=== PATIENT | female | born 1930 | race Caucasian/White ===

== ENCOUNTER → 2016-12-20 | Outpatient (CLI) | payer BC ==
[~2016-12-20] MED LIST: AMOX500C3 PO; ASPI-461 PO; BROM0.07 OPL; CETI10TA84 PO; CHOL20005 PO; CRDCD120 PO; GATI0.5S OPL; LEVO75TA5 PO; LPT40 PO; MAGN1CAP2 PO; METO1TAB69 PO; PRD20 PO; PRED1SUS3 OPL; PRLSR20 PO; ZNT150 PO
[2016-12-20 13:09] LABS: BASO % 0.3 %; BASO ABS # 0.02 K/uL (0-0.2); COMPLETE YES; EOS % 6.8 %; HEMATOCRIT 38.5 % (37-47); IG% 0.3 %; LYMPH % 32.5 %; LYMPH ABS # 2.59 K/uL (1.2-3.4); MEAN CELL VOLUME 85.4 fL (80-100); MEAN CORPUSCULAR HEMOGLOBIN 28.8 pg (25-34); MEAN CORPUSCULAR HGB CONC 33.8 g/dl (32-36); MEAN PLATELET VOLUME 11.5 fL (7.4-10.4); MONO % 12.9 %; NEUT % 47.2 %; PLATELET COUNT 224 K/uL (130-400); RED BLOOD COUNT 4.51 M/uL (4.2-5.4); WHITE BLOOD COUNT 7.97 K/uL (4.8-10.8)
[2016-12-20 13:43] LABS: ALT/SGPT 21 U/L (12-78); BLOOD UREA NITROGEN 18 mg/dl (7-18); BUN/CREATININE RATIO 19.1 (10-20); CALCIUM 9.2 mg/dl (8.5-10.1); CARBON DIOXIDE 29 mmol/L (21-32); CHLORIDE 104 mmol/L (98-107); CREATININE 0.96 mg/dl (0.60-1.20); GLUCOSE 69 mg/dl (70-99); POTASSIUM 4.1 mmol/L (3.5-5.1); SODIUM 139 mmol/L (136-145)
[2016-12-20 13:54] LABS: ALB/GLOB RATIO 0.9 (0.9-2); ALKALINE PHOSPHATASE 103 U/L (45-117); AST/SGOT 22 U/L (15-37); PHOSPHORUS 2.8 mg/dl (2.5-4.9); THYROID STIMULATING HORMONE 0.685 uIu/ml (0.300-4.500)
[2016-12-20 13:55] LABS: RATIO 37.5 mcg/mg (0-30.0)
== END | disposition home or self-care (01) ==
LOC: C.LAB 12:09
PROVIDERS: ATTEND Internal Medicine
DX: N18.3 Chronic kidney disease, stage 3 (moderate) (principal); E03.9 Hypothyroidism, unspecified; M81.0 Age-related osteoporosis without current pathological fracture

== ENCOUNTER → 2018-02-24 | Outpatient (CLI) | payer BC ==
[~2018-02-24] MED LIST changes: -CRDCD120 PO; +DILT-202 PO; +METO100T44 PO; -METO1TAB69 PO
[2018-02-24 10:50] LABS: BLOOD UREA NITROGEN 17 mg/dl (7-18); CREATININE 1.18 mg/dl (0.60-1.20)
== END | disposition home or self-care (01) ==
LOC: C.LAB1850 09:26
PROVIDERS: ATTEND Psychiatry & Neurology Neurology
DX: G40.209 Localization-related (focal) (partial) symptomatic epilepsy and epileptic syndromes with complex partial seizures, not intractable, without status epilepticus (principal)

== ENCOUNTER → 2018-02-28 | Outpatient (CLI) | payer BC ==
[~2018-02-28] MED LIST changes: +GADAVIST IV PRN
--- NOTE | 2018-02-28 09:00 | DIAGNOSTIC IMAGING REPORT ---
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 COMPARISON STUDY: Head CT 11/19/2015. FINDINGS: There is no mass, hematoma, midline shift, or acute infarct. The paranasal sinuses are clear. The mastoid air cells are clear. The ventricles and sulci demonstrate mild age-related involutional changes. Scattered foci of T2 hyperintensity seen within the periventricular and subcortical white matter are nonspecific but suggestive of moderate microvascular ischemic changes. The major vascular flow voids at the skull base are well-maintained. The medial temporal lobes are symmetric. Linear focus of enhancement within the right parietal lobe consistent with a development of venous anomaly. This is consistent with a normal variant. Otherwise, no abnormal enhancement. IMPRESSION: No acute intracranial abnormality. Scattered foci of T2 hyperintensity seen within the periventricular and subcortical white matter are nonspecific but favor microvascular ischemic change. Electronically signed by: Erich Canales M.D. 02/28/2018 8:59 AM Dictated Date/Time: 02/28/2018 8:20 AM
== END | disposition home or self-care (01) ==
LOC: C.MRIBC 06:44
PROVIDERS: ATTEND Psychiatry & Neurology Neurology
DX: G40.209 Localization-related (focal) (partial) symptomatic epilepsy and epileptic syndromes with complex partial seizures, not intractable, without status epilepticus (principal)

== ENCOUNTER 2020-01-05 19:47 | Inpatient (IN) ==
--- NOTE | 2020-01-05 20:05 | Emergency Department Note ---
ED Provider Note NAME: JOSE CANTOR AGE: 89 SEX: F ARRIVES VIA: Walk-In INFORMANT: [Patient] ED PROVIDER(S): [Prosper Pritchard MD] CHIEF COMPLAINT: chest pain IMPRESSION: Acute respiratory failure with hypoxia, Flash pulmonary edema, Hypertensive emergency, CHF (congestive heart failure), Aortic stenosis MEDICAL DECISION MAKING: The patient is a pleasant 89 y/o woman with a pmhx of HTN, HLD, CKD, DVT, s/p AVR with aortic stenosis who presents to the emergency department with CP, shoulder pain, shortness of breath, with associated tingling of BUE which began this evening around 7pm tonight shortly prior to arrival when walking with her after eating dinner. Patient reports chronic SMITH but reports she does not typically have the associated CP and shoulder pain and that her SOB this time was much worse. She does report it was steadily improving without intervention upon arriving to the ED tonight. On arrival the patient is fatigued appearing but in NAD, AF, BP 150s/80s, O2 saturation 89% on RA, and otherwise VS S. On exam the patient appears clinically dry. Lungs are with scant intermittent wheeze but otherwise clear. 3/6 systolic murmur. EKG unremarkable without evidence of acute ischemia. CXR with mild prominence of pulmonary vasculature but no overt failure. WBC, H/H, platelets wnl. Chemistry without acidosis. BUN 26 with BUN/Cr > 20 c/w patient's clinically dry appearance. LFTs and electrolytes unremarkable. Troponin 0.024, wnl. BNP 8K without prior values for comparison. Flu negative. Given patient's constellation of sx CTA of the chest was performed and was negative for dissection, PE or focal infiltrates. Note is made of mild congestive change with "trace amount pleural fluid both lung base s". Upon return for CT patient expresses significant worsening of symptoms, with increased WOB and accessory muscle use with BP increased to 170s/110s with development of rales and rhonchi. Sx most c/w flash pulmonary edema given related to lying supine for CT. Patient was ordered for NTG for afterload reduction and Bipap, which the patient tolerated well after 0.25mg dose of ativan for anxiolysis. Subsequently, patient's WOB rapidly improved and was able to rest comfortably. Given patient's tenuous respiratory status with development of respiratory failure admission was pursued. Patient and family were agreeable. Patient likely has narrow window for Euvolemia in the setting of her aortic st enosis. May require combination of hydration and diuresis. Case was discussed with Dr. Mathis, [facility] hospitalist, who will evaluate the patient for admission. Triage Nursing notes reviewed and agree them. [Prior medical records reviewed] [] Differential diagnosis: Cardiac ischemia, aortic dissection, pulmonary embolism, pneumothorax, pneumo nicholas, pericarditis, myocarditis, esophageal rupture, GERD, cholecystitis, pancreatitis, musculoskeletal, as well as other pathologies. ER treatment provided: [See below] Diagnostics interpreted by me: ECG: NSR, 87 bpm, ST and TWA laterally, no ST elevation, no ectopy, qtc 462, qrs 104. Cardiac Monitoring: NSR, 87 bpm, no ectopy. Laboratory studies: [See below] [] Imaging studies: [See below] [] Consultation(s): Dr. Mathis [facility] hospitalist, who will evaluate the patient for admission. HPI: The patient is a pleasant 89 y/o woman with a pmhx of HTN, HLD, CKD, DVT, s/p AVR with aortic stenosis who presents to the emergency department with CP, shoulder pain, shortness of breath, with associated tingling of BUE which began this evening around 7pm tonight shortly prior to arrival when walking with her after eating dinner. Patient reports chronic SMITH but reports she does not typically have the associated CP and shoulder pain and that her SOB this time was much worse. She does report it was steadily improving without intervention upon arriving to the ED tonight. The patient reports onset as abrupt. Reports exertion as provoking factor. Describes symptoms as heaviness in chest and shoulders. Reports radiation arms with tingling. Reports severity as mild to moderate. Timing of symptoms are constant but improving. Has tried medications to help with symptoms. Denies recent travel. Denies fevers, cough, congestion, nausea, vomiting, diarrhea, JOINER, syncope/near syncope. ROS: See above HPI for pertinent positives & negatives. A total of [10] systems reviewed and were otherwise negative. PAST MEDICAL HISTORY:[See Below] PAST SURGICAL HISTORY:[See Below] FAMILY HISTORY:[See Below] SOCIAL HISTORY:[See Below] HOME MEDICATIONS:[See Below] ALLERGIES:[See Below] VITALS:[See Below] PHYSICAL EXAMINATION: GENERAL: Awake, alert, fatigued-appearing, in no distress HENT: Normocephalic, atraumatic. Oropharynx with dry mucous membranes and otherwise unremarkable. EYES: Normal conjunctiva. Sclera non-icteric. NECK: Supple. No nuchal rigidity. FROM. No JVD. RESPIRATORY: Scant intermittent wheeze and otherwise clear to auscultation. CARDIAC: Regular rate, normal rhythm. Extremities warm and well perfused. Pulses equal. 3/6 systolic murmur that radiates to bilateral carotids. ABDOMEN: Soft, non-distended. No tenderness to palpation. No rebound or guarding. No masses. RECTAL: Deferred. MUSCULOSKELETAL: Chest examination reveals no tenderness. The back is symmetrical on inspection without obvious abnormality. There is no CVA tenderness to palpation. No joint edema. LOWER EXTREMITIES: Calves are equal size bilaterally and non-tender. No edema. No discoloration. NEURO: Normal sensorium. No sensory or motor deficits noted. SKIN: No rash or jaundice noted. ED COURSE: Procedures: [none] [Critical Care:] I have personally spent greater than 75 minutes of critical care time in the direct management of this patient. This includes bedside care, interpretation o f diagnostic studies, and testing, discussion with consultants, patient, and family members, and other required patient management activities. This 75 minutes is in excess of all separately billable procedures. Impression & Plan Acute respiratory failure with hypoxia, Flash pulmonary edema, Hypertensive emergency, CHF (congestive heart failure), Aortic stenosis Past Med/Surg History Medical History Carotid artery disease (Chronic) "bilateral bruits, < 50% stenosis bilaterally 2010" CKD (chronic kidney disease) stage 3, GFR 30-59 ml/min (Chronic) Diverticular disease of colon (Chronic) Dyslipidemia (Chronic) History of heparin-induced thrombocytopenia (Chronic) [place] [place]" Hypertension (Chronic) Hypothyroidism (Chronic) Osteoporosis (Chronic) Patella fracture (Resolved) "right patella 04/26/14" Supraventricular tachycardia (Chronic) Surgical History Status post aortic valve replacement with bioprosthetic valve (Chronic) "severe /AI; Dr. Clark [facility] [place] 10/10/09; 21 mm Didi-Greene" Social History Preferred Language: Faroese Communication Ability: Effective Inspector Subassembly Required: No Beliefs That Will Affect Care: None Current Living Situation: Spouse Other Information That Helps Us Care for You: No Feels Safe at Home: Yes Safety Concerns: Feels Safe At This Time Smoking Status: Unknown if ever smoked Hx Alcohol Use: No Hx Substance Use: No Results & Data Vital Signs Vital Signs - 24 hr 01/05/20 19:48 01/05/20 19:55 01/05/20 21:45 Temperature 36.3 C L Temperature Source Oral Pulse Rate 91 H Pulse Rate [Finger] Pulse Rate from SpO2 Sensor Pulse Rhythm Regular Pulse Strength Normal Respiratory Rate 20 Respiratory Effort / Characteristics Non-Labored Spontaneous Respiratory Depth Normal Respiratory Pattern Regular Blood Pressure 154/80 H Blood Pressure [Left Arm] Blood Pressure Mean 104 Blood Pressure Mean [Left Arm] Blood Pressure Position Sitting Pulse Oximetry 96 96 89 L Oxygen Delivery Method Room Air Room Air Room Air Oxygen Flow Rate Fraction of Inspired Oxygen Sepsis Recent Fever Within 48 Hours No Sepsis Action Taken by Nursing No Action Required 01/05/20 22:05 01/05/20 22:09 01/05/20 22:16 Temperature Temperature Source Pulse Rate 87 87 Pulse Rate [Finger] 90 Pulse Rate from SpO2 Sensor Pulse Rhythm Pulse Strength Respiratory Rate 23 35 H 23 Respiratory Effort / Characteristics Spontaneous Labored Spontaneous Labored Respiratory Depth Normal Normal Respiratory Pattern Regular Blood Pressure Blood Pressure [Left Arm] 178/104 H Blood Pressure Mean Blood Pressure Mean [Left Arm] 128 Blood Pressure Position Pulse Oximetry 97 97 97 Oxygen Delivery Method Nasal Cannula Nasal Cannula Oxygen Flow Rate 3 4 Fraction of Inspired Oxygen 30 30 Sepsis Recent Fever Within 48 Hours Sepsis Action Taken by Nursing 01/05/20 22:45 01/05/20 22:50 Temperature Temperature Source Pulse Rate 74 73 Pulse Rate [Finger] Pulse Rate from SpO2 Sensor 74 73 Pulse Rhythm Pulse Strength Respiratory Rate 20 24 Respiratory Effort / Characteristics Respiratory Depth Respiratory Pattern Blood Pressure 116/88 137/89 Blood Pressure [Left Arm] Blood Pressure Mean 90 92 Blood Pressure Mean [Left Arm] Blood Pressure Position Pulse Oximetry 99 99 Oxygen Delivery Method Oxygen Flow Rate Fraction of Inspired Oxygen Sepsis Recent Fever Within 48 Hours Sepsis Action Taken by Nursing Laboratory Data Attestation: I reviewed the patient's lab results. Result diagrams: 01/05/20 20:00 01/05/20 20:00 Lab Results 01/05/20 01/05/20 01/05/20 Range/Units 20:00 20:00 20:00 WBC 7.04 (4.8-10.8) K/uL RBC 4.38 (4.2-5.4) M/uL Hgb 12.6 (12.0-16.0) g/dL Hct 38.5 (37-47) % MCV 87.9 (80-100) fL MCH 28.8 (25-34) pg MCHC 32.7 (32-36) g/dL RDW Std Deviation 46.3 (36.4-46.3) fL RDW Coeff of Cheryl 14.4 (11.5-14.5) % Plt Count 222 (130-400) K/uL MPV 11.1 H (7.4-10.4) fL Immature Gran % (Auto) 0.3 % Neut % (Auto) 47.7 % Lymph % (Auto) 30.3 % Letcher % (Auto) 11.9 % Eos % (Auto) 9.2 % Baso % (Auto) 0.6 % Immature Gran # (Auto) 0.02 (0.00-0.02) K/uL Neut # (Auto) 3.36 (1.4-6.5) K/uL Lymph # (Auto) 2.13 (1.2-3.4) K/uL Letcher # (Auto) 0.84 H (0.11-0.59) K/uL Eos # (Auto) 0.65 H (0-0.5) K/uL Baso # (Auto) 0.04 (0-0.2) K/uL PT 10.6 (9.0-12.0) Seconds INR 1.0 (0.9-1.1) APTT 26.8 (21.0-31.0) Seconds PTT Ratio 1.0 Sodium 140 (136-145) mmol/L Potassium 3.8 (3.5-5.1) mmol/L Chloride 109 H (98-107) mmol/L Carbon Dioxide 25 (21-32) mmol/L Anion Gap 7.0 (3-11) BUN 26 H (7-18) mg/dl Creatinine 1.14 (0.6-1.2) mg/dl Est Cr Clr Drug Dosing Not Reportable Est GFR ( Amer) 50.1 Est GFR (Non-Af Amer) 43.2 BUN/Creatinine Ratio 22.4 H (10-20) Glucose 94 (70-99) mg/dl Calcium 9.2 (8.5-10.1) mg/dl Phosphorus 3.2 (2.5-4.9) mg/dl Magnesium 2.2 (1.8-2.4) mg/dl Total Bilirubin 0.4 (0.2-1) mg/dl AST 32 (15-37) U/L ALT 19 (12-78) U/L Alkaline Phosphatase 81 (45-117) U/L Troponin I 0.024 (0-0.045) ng/ml NT-Pro-B Natriuret Pep 8559 H (0-1800) pg/ml Total Protein 7.6 (6.4-8.2) gm/dl Albumin 4.1 (3.4-5.0) gm/dl Globulin 3.5 (2.5-4.0) gm/dl Albumin/Globulin Ratio 1.2 (0.9-2) Lipase 134 (73-393) U/L TSH 0.258 L (0.300-4.500) uIu/ml Free T4 1.37 (0.8-1.6) ng/dl Specimen Hemolysis Administered Medications Lamotrigine (Lamictal) 50 mg PO BID AFTAB Stop: 02/04/20 23:39 Last Admin: 01/06/20 00:38 Dose: 50 mg Documented by: [id number] Discontinued Medications Furosemide (Lasix) 40 mg IV NOW STA Stop: 01/05/20 22:11 Last Admin: 01/05/20 22:31 Dose: 40 mg Documented by: [id number] Sodium Chloride (Nss) 500 mls @ 999 mls/hr IV .Q31M ONE Stop: 01/05/20 20:46 Last Infusion: 01/05/20 21:18 Dose: 0 mls/hr Documented by: [id number] Admin: 01/05/20 20:32 Dose: 999 mls/hr Documented by: [id number] Acetaminophen (Ofirmev) 1,000 mg in 100 mls @ 400 mls/hr IV NOW STA Stop: 01/05/20 20:30 Last Infusion: 01/05/20 20:47 Dose: 0 mls/hr Documented by: [id number] Admin: 01/05/20 20:32 Dose: 400 mls/hr Documented by: [id number] Famotidine (Pepcid 20mg Iv Push) 20 mg in 5 mls @ 2.5 mls/min IV NOW STA Stop: 01/05/20 20:17 Last Admin: 01/05/20 20:32 Dose: 2.5 mls/min Documented by: [id number] Lorazepam (Ativan) 0.25 mg in 0.5 mls @ 0.5 mls/min IV NOW STA Stop: 01/05/20 22:04 Last Admin: 01/05/20 22:06 Dose: 0.5 mls/min Documented by: [id number] Ioversol (Optiray 320 125ml) 111 ml IV ONCE PRN PRN Reason: Interaction Checking Stop: 01/09/20 20:58 Last Admin: 01/05/20 21:00 Dose: 111 ml Documented by: [id number] Ipratropium [place] (Atrovent 0.02% 0.5mg/2.5ml) 0.5 mg INH ONE STA Stop: 01/05/20 22:37 Last Admin: 01/05/20 23:09 Dose: 0.5 mg Documented by: [id number] Levalbuterol HCl (Xopenex 1.25mg/0.5ml Neb) 1.25 mg INH ONE STA Stop: 01/05/20 22:37 Last Admin: 01/05/20 23:09 Dose: 1.25 mg Documented by: [id number] Nitroglycerin (Nitrostat) 0.4 mg SL NOW STA Stop: 01/05/20 21:44 Last Admin: 01/05/20 22:08 Dose: 0.4 mg Documented by: [id number] Potassium Chloride (Klor-Con M20) 40 meq PO NOW STA Stop: 01/05/20 23:41 Last Admin: 01/06/20 00:38 Dose: 40 meq Documented by: [id number] Imaging Data Attestation: I personally reviewed and interpreted this imaging study as follows: Radiologist's Impression: XR chest 1V portable CLINICAL HISTORY: Chest Pain dyspnea COMPARISON STUDY: 11/18/2015 FINDINGS: Mild cardiac megaly. Prior median sternotomy. Increased prominence of pulmonary vasculature. Diaphragms are smooth. There is slight blunting right lateral costophrenic angle. IMPRESSION: Probable developing congestive heart failure ACT 112: Negative or not required by law. ------- CT angio chest PE protocol CT DOSE: 252.09 mGy.cm HISTORY: Dyspnea PE TECHNIQUE: Multiaxial CT images of the chest were performed following the intravenous administration of contrast to evaluate the pulmonary arteries. Maximal intensity projection images were also obtained. A dose lowering technique was utilized adhering to the principles of ALARA. COMPARISON STUDY: None. FINDINGS: Atherosclerotic change thoracic aorta. Fixed hiatal hernia. Bony vasculature enhances appropriately. No significant filling defects. Baseline emphysematous change of the lungs. Scattered areas of atelectatic change. Cardiac size is increased. Trace amount pleural fluid both lung bases. IMPRESSION: 1. No evidence for pulmonary embolus. 2. Moderate emphysematous change. 3. Fixed hiatal hernia. 4. Findings of mild congestive failure with small bilateral pleural effusions. ACT 112: Negative or not required by law. Blood Pressure Blood Pressure Findings: Elevated blood pressure Blood Pressure Disposition: further management by hospitalist Discharge Plan Visit Data *Final* Discharge Date/Time: 01/05/20 23:23 Chief Complaint: Chest Pain Stated Complaint: NUMBNESS IN ARM, CHEST PAIN ED Provider: Prosper Pritchard Discharge Problem: Acute respiratory failure with hypoxia, Flash pulmonary edema, Hypertensive emergency, CHF (congestive heart failure), Aortic stenosis Patient Disposition: Admitted As Inpatient Discharge Instructions Interventions: ED Discharge Assessment Last Done: 01/05/20 23:23 Meds Home Medications and Allergies Home Medications Medication Instructions Recorded Confirmed Type amoxicillin 2,000 mg PO UD 01/12/19 01/05/20 History aspirin 81 mg PO HS 01/12/19 01/05/20 History atorvastatin 40 mg PO QAM 01/12/19 01/05/20 History cetirizine-pseudoephedrine 1 tab PO PM 01/12/19 01/05/20 History [Zyrtec-D] cholecalciferol (vitamin D3) 2,000 unit PO QAM 01/12/19 01/05/20 History [Vitamin D3] diltiazem HCl 120 mg PO QAM 01/12/19 01/05/20 History magnesium oxide 500 mg PO QAM 01/12/19 01/05/20 History metoprolol succinate 100 mg PO 01/12/19 01/05/20 History polyvinyl alcohol-povidon(PF) 1 drp OPB DAILY 01/12/19 01/05/20 History [Refresh Classic (PF)] ranitidine HCl 150 mg PO BID 01/12/19 01/05/20 History acetaminophen [Tylenol Extra 500 mg PO QID PRN 07/03/19 01/05/20 History Strength] furosemide [Lasix] 20 mg PO DAILY 01/05/20 01/05/20 History isosorbide mononitrate 30 mg PO DAILY 01/05/20 01/05/20 History lamotrigine [Lamictal] 50 mg PO BID 01/05/20 01/05/20 History levothyroxine 88 mcg PO DAILY 01/05/20 01/05/20 History Allergies Allergy/AdvReac Type Severity Reaction Status Date / Time heparin Allergy Severe + Verified 01/05/20 20:37 SEROTONIN RELEASE ASSAY 09/2009 [facility] losartan Allergy Severe angioedema Verified 01/05/20 20:37 Cipro Allergy Intermediate ? Verified 11/18/15 11:01 ciprofloxacin Allergy Intermediate ? Verified 01/05/20 20:37 fexofenadine Allergy Intermediate ? Verified 01/05/20 20:37 risedronate sodium Allergy Intermediate ? Verified 01/05/20 20:37 alendronate sodium Allergy Unknown UNKNOWN Verified 01/05/20 20:37 Bactrim Allergy Unknown ? Verified 11/18/15 11:01 lactose Allergy Unknown . Unverified 01/05/20 20:37 morphine Allergy Unknown ? Verified 07/03/19 10:39 raloxifene Allergy Unknown UNKNOWN Verified 07/03/19 10:39 sulfamethoxazole Allergy Unknown ? Verified 07/03/19 10:39 trimethoprim Allergy Unknown ? Verified 07/03/19 10:39 oxycodone AdvReac Intermediate NAUSEA Verified 07/03/19 10:39 albuterol AdvReac Mild tachycardia Verified 01/05/20 22:29
--- NOTE | 2020-01-05 20:11 | XRay Report ---
XR chest 1V portable CLINICAL HISTORY: Chest Pain dyspnea COMPARISON STUDY: 11/18/2015 FINDINGS: Mild cardiac megaly. Prior median sternotomy. Increased prominence of pulmonary vasculature . Diaphragms are smooth. There is slight blunting right lateral costophrenic angle. IMPRESSION: Probable developing congestive heart failure ACT 112: Negative or not required by law. The above report was generated using voice recognition software. It may contain grammatical, syntax or spelling errors. Electronically signed by: Sergio Gutierrez M.D. 01/05/2020 8:10 PM
[2020-01-05] MEDS ORDERED: FAMOTIDINE 20MG IV PUSH 20 MG/5 ML SYR IV STA (20:16)
[2020-01-05] MEDS ORDERED: SODIUM CHLORIDE 0.9% 500 ML IV ONE (20:16)
[2020-01-05] MEDS ORDERED: ACETAMINOPHEN 1,000 MG/100 ML VIAL IV STA (20:16)
[2020-01-05 20:18] LABS: Basophils # (auto) 0.04 K/uL (0-0.2); Basophils % (auto) 0.6 %; Eosinophils # (auto) 0.65 K/uL (0-0.5); Eosinophils % (auto) 9.2 %; Hematocrit (blood only) 38.5 % (37-47); Hemoglobin 12.6 g/dL (12.0-16.0); Immature Granulocytes # (auto) 0.02 K/uL (0.00-0.02); Immature Granulocytes % (auto) 0.3 %; Lymphocytes # (auto) 2.13 K/uL (1.2-3.4); Lymphocytes % (auto) 30.3 %; Mean Corpuscular Hemoglobin 28.8 pg (25-34); Mean Corpuscular Hgb Conc 32.7 g/dL (32-36); Mean Corpuscular Volume 87.9 fL (80-100); Mean Platelet Volume 11.1 fL (7.4-10.4); Monocytes # (auto) 0.84 K/uL (0.11-0.59); Monocytes % (auto) 11.9 %; Neutrophils # (auto) 3.36 K/uL (1.4-6.5); Neutrophils % (auto) 47.7 %; Platelet Count 222 K/uL (130-400); RDW Coefficient of Variation 14.4 % (11.5-14.5); RDW Standard Deviation 46.3 fL (36.4-46.3); Red Blood Count 4.38 M/uL (4.2-5.4); White Blood Count 7.04 K/uL (4.8-10.8)
[2020-01-05 20:37] LABS: Partial Thromboplastin Time 26.8 Seconds (21.0-31.0); Prothrombin Time 10.6 Seconds (9.0-12.0)
[2020-01-05 20:44] LABS: Alanine Aminotransferase 19 U/L (12-78); Albumin Level 4.1 gm/dl (3.4-5.0); Aspartate Aminotransferase 32 U/L (15-37); BUN Creatinine Ratio 22.4 (10-20); Blood Urea Nitrogen 26 mg/dl (7-18); Calcium 9.2 mg/dl (8.5-10.1); Carbon Dioxide 25 mmol/L (21-32); Chloride 109 mmol/L (98-107); Est GFR (African American) 50.1; Est GFR (Non-African American) 43.2; Glucose 94 mg/dl (70-99); Lipase 134 U/L (73-393); Magnesium 2.2 mg/dl (1.8-2.4); Potassium 3.8 mmol/L (3.5-5.1); Sodium 140 mmol/L (136-145)
[2020-01-05 20:50] LABS: Albumin Globulin Ratio 1.2 (0.9-2); Alkaline Phosphatase 81 U/L (45-117); Bilirubin,Total 0.4 mg/dl (0.2-1); Globulin 3.5 gm/dl (2.5-4.0); Phosphorus 3.2 mg/dl (2.5-4.9); Thyroid Stimulating Hormone 0.258 uIu/ml (0.300-4.500); Total Protein 7.6 gm/dl (6.4-8.2); Troponin I 0.024 ng/ml (0-0.045)
[2020-01-05] MEDS ORDERED: OPTIRAY 320 125ml IV PRN (20:59)
[2020-01-05 21:05] LABS: T4 Free Thyroxine 1.37 ng/dl (0.8-1.6)
--- NOTE | 2020-01-05 21:05 | CT Scan Report ---
CT angio chest PE protocol CT DOSE: 252.09 mGy.cm HISTORY: Dyspnea PE TECHNIQUE: Multiaxial CT images of the chest were performed following the intravenous administration of contrast to evaluate the pulmonary arteries. Maximal intensity projection images were also obtaine d. A dose lowering technique was utilized adhering to the principles of ALARA. COMPARISON STUDY: None. FINDINGS: Atherosclerotic change thoracic aorta. Fixed hiatal hernia. Bony vasculature enhances appropriately. No significant filling defects. Baseline emphysematous change of the lungs. Scattered areas of atelectatic change. Cardiac size is in creased. Trace amount pleural fluid both lung bases. IMPRESSION: 1. No evidence for pulmonary embolus. 2. Moderate emphysematous change. 3. Fixed hiatal hernia. 4. Findings of mild congestive failure with small bilateral pleural effusions. ACT 112: Negative or not required by law. The above report was generated using voice recognition software. It may contain grammatical, syntax or spelling errors. Electronically signed by: Sergio Gutierrez M.D. 01/05/2020 9:04 PM
[2020-01-05] MEDS ORDERED: NITROGLYCERIN SL 0.4 MG/TAB TAB SL STA (21:43)
[2020-01-05] MEDS ORDERED: LORazepam 0.25 MG/0.5 ML VIAL IV STA (22:03)
[2020-01-05] MEDS ORDERED: FUROSEMIDE 40 MG/4 ML VIAL IV STA (22:10)
[2020-01-05 22:18] LABS: NT Pro B Type Natriuretic Pept 8559 pg/ml (0-1800)
[2020-01-05] MEDS ORDERED: XOPENEX/ATROVENT 1.25mg/0.5MG NEB COMBO NEB STA (22:29)
[2020-01-05] MEDS ORDERED: LEVALBUTEROL 1.25MG/0.5ML NEB INH STA (22:36)
[2020-01-05] MEDS ORDERED: IPRATROPIUM BROMIDE NEB SOLN 0.02% 2.5 ML VIAL INH STA (22:36)
--- NOTE | 2020-01-05 22:53 | History & Physical Report ---
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 PCU BiPAP Baseline ABG IV diuretic Rx now Strict I/Os, daily weights, CHF education, fluid restriction for now Cardiology consult RE decompensated heart failure DVT prophylaxis. 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 Patient's requesting updates from providers. Mr. Kalin Pérez, contact numbers [phone], [phone]. Text document was generated using [employer] voice recognition software. It may contain grammatical or spelling errors. Kindly contact undersigned for clarification of any documentation item in question. History of Present Illness Chief Complaint: Shortness of breath Primary Care Provider: Edd Guardado MD History obtained from patient, family, and records. Medical history significant for chronic diastolic heart failure (EF 52%, TTE 2019), CAD/PVD per records, PSVT as per records, aortic stenosis status post bioprosthetic AVR, bioprosthetic AV stenosis, severe mitral/regurgitation, pulmonary hypertension as per records, hypertension, seizure disorder, hypothyroidism, history bilateral PE/DVT, hx heparin-induced thrombocytopenia, macular degeneration. Recent confinement October 2015 for PSVT, tongue edema secondary to Losartan. Patient underwent bioprosthetic AVR for aortic stenosis last September 2019. Patient noted gradually worsening shortness of breath on exertion over the last 6 months as per family. Patient evaluated by [facility] cardiology September 2020. Symptoms attributed to valvular heart disease including severe bioprosthetic aortic valve stenosis. Observation/medical management recommended at time of encounter. Consider surgical intervention with declining functional capacity, refractory CHF, or worsening exertional symptoms. Updated outpatient 2D echo results from October 2019 as follows : The LV wall thickness is mildly increased (concentric). The left ventricular wall motion is normal. Calculated LV ejection Fraction = 52% (bi-plane method of discs). There is an aortic valve bioprosthetic present. The prosthetic aortic valve leaflets appear thickened with decreased excursion. Severe aortic valve prosthetic stenosis is present, with peak continues wave Doppler velocity of 5.5 meters/second, mean gradient 76 millimeters Hg, calculated aortic valve area 0.4 cm2 Severe mitral regurgitation is present. Severe tricuspid regurgitation is present. Severe pulmonary hypertension is present. The estimated pulmonary artery systolic pressure is 78mm Hg. Compared to the prior study performed 04/27/2017, the peak CW Doppler velocity across the prosthetic aortic valve was 2.2 meters/second at that time, as compared to 4.1 meters/second on 03/10/2019, and 5.5 meters/second on the current study. There has therefore been an interval progression of the prosthetic aortic valve stenos is. Mild pulmonary hypertension was noted at the time of the 02/28/2019 study, with estimated pulmonary artery systolic pressure in the range of 40-45 millimeters of Hg, as compared to > 70 millimeters Hg on the present study. Worsening exertional dyspnea symptoms on follow-up outpatient Cardiology visit 3 weeks ago. Outpatient diuretic regimen increased. Patient awaiting appointment second opinion from [facility] CT surgery as family was told by [facility] CT surgeons that they would not be comfortable doing procedure at [facility]. This afternoon patient noted dizziness, worsening shortness of breath on exertion with chest heaviness/back pain with dry cough symptoms. No fever, no chills. Denies unusual fluid retention. Compliant with home diuretic regimen. Patient brought to the ER. Progressive respiratory distress noted upon return from CT. BiPAP initiated at the ER. 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 Verified 11/18/15 11:01 ciprofloxacin Allergy Intermediate ? Verified 01/05/20 20:37 fexofenadine Allergy Intermediate ? Verified 01/05/20 20:37 risedronate sodium Allergy Intermediate ? Verified 01/05/20 20:37 alendronate sodium Allergy Unknown UNKNOWN Verified 01/05/20 20:37 Bactrim Allergy Unknown ? Verified 11/18/15 11:01 lactose Allergy Unknown . Unverified 01/05/20 20:37 morphine Allergy Unknown ? Verified 07/03/19 10:39 raloxifene Allergy Unknown UNKNOWN Verified 07/03/19 10:39 sulfamethoxazole Allergy Unknown ? Verified 07/03/19 10:39 trimethoprim Allergy Unknown ? Verified 07/03/19 10:39 oxycodone AdvReac Intermediate NAUSEA Verified 07/03/19 10:39 albuterol AdvReac Mild tachycardia Verified 01/05/20 22:29 Home Medications Home Medications Medication Instructions Recorded Confirmed Type amoxicillin 2,000 mg PO UD 01/12/19 01/05/20 History aspirin 81 mg PO HS 01/12/19 01/05/20 History atorvastatin 40 mg PO QAM 01/12/19 01/05/20 History cetirizine-pseudoephedrine 1 tab PO PM 01/12/19 01/05/20 History [Zyrtec-D] cholecalciferol (vitamin D3) 2,000 unit PO QAM 01/12/19 01/05/20 History [Vitamin D3] diltiazem HCl 120 mg PO QAM 01/12/19 01/05/20 History magnesium oxide 500 mg PO QAM 01/12/19 01/05/20 History metoprolol succinate 100 mg PO HS 01/12/19 01/05/20 History polyvinyl alcohol-povidon(PF) 1 drp OPB DAILY 01/12/19 01/05/20 History [Refresh Classic (PF)] ranitidine HCl 150 mg PO BID 01/12/19 01/05/20 History acetaminophen [Tylenol Extra 500 mg PO QID PRN 07/03/19 01/05/20 History Strength] furosemide [Lasix] 20 mg PO DAILY 01/05/20 01/05/20 History isosorbide mononitrate 30 mg PO DAILY 01/05/20 01/05/20 History lamotrigine [Lamictal] 50 mg PO BID 01/05/20 01/05/20 History levothyroxine 88 mcg PO DAILY 01/05/20 01/05/20 History Past Med/Surg History Social History Preferred Language: Luxembourger Communication Ability: Effective Youth Teacher Required: No Beliefs That Will Affect Care: None Current Living Situation: Spouse Other Information That Helps Us Care for You: No Feels Safe at Home: Yes Safety Concerns: Feels Safe At This Time Smoking Status: Unknown if ever smoked Hx Alcohol Use: No Hx Substance Use: No Review of Systems Review of Systems: As per HPI, all 10 systems reviewed, all other ROS negative Physical Exam Physical Exam: GENERAL: Slightly uncomfortable, minimal respiratory distress SKIN: Normal color, warm HEENT: [place] palpebral conjunctivae, conjunctivitis right (chronic from eye injections as per ), no ptosis, dry buccal mucosa, BiPAP in place NECK : Supple, no tenderness CHEST : Decreased breath sounds, basilar crackles, no tenderness HEART : RRR, systolic murmur ABDOMEN: Some distention, nontender EXTREMITIES : Minimal LE swelling, no LE /tenderness, no other conspicuous deformities noted NEUROLOGIC : Coherent, no facial asymmetry, no other gross focality Results & Data Vital Signs (Past 12 Hours) Vital Signs Temp Pulse Pulse Resp BP BP Pulse Ox 01/05/20 22:16 87 23 97 01/05/20 22:09 90 35 H 178/104 H 97 01/05/20 22:05 87 23 97 01/05/20 21:45 89 L 01/05/20 19:55 96 01/05/20 19:48 36.3 C L 91 H 20 154/80 H 96 Laboratory Results Laboratory Results WBC 7.04 K/uL (4.8-10.8) 01/05/20 20:00 RBC 4.38 M/uL (4.2-5.4) 01/05/20 20:00 Hgb 12.6 g/dL (12.0-16.0) 01/05/20 20:00 Hct 38.5 % (37-47) 01/05/20 20:00 MCV 87.9 fL (80-100) 01/05/20 20:00 MCH 28.8 pg (25-34) 01/05/20 20:00 MCHC 32.7 g/dL (32-36) 01/05/20 20:00 RDW Std Deviation 46.3 fL (36.4-46.3) 01/05/20 20:00 RDW Coeff of Cheryl 14.4 % (11.5-14.5) 01/05/20 20:00 Plt Count 222 K/uL (130-400) 01/05/20 20:00 MPV 11.1 fL (7.4-10.4) H 01/05/20 20:00 Immature Gran % (Auto) 0.3 % 01/05/20 20:00 Neut % (Auto) 47.7 % 01/05/20 20:00 Lymph % (Auto) 30.3 % 01/05/20 20:00 Marshall % (Auto) 11.9 % 01/05/20 20:00 Eos % (Auto) 9.2 % 01/05/20 20:00 Baso % (Auto) 0.6 % 01/05/20 20:00 Immature Gran # (Auto) 0.02 K/uL (0.00-0.02) 01/05/20 20:00 Neut # (Auto) 3.36 K/uL (1.4-6.5) 01/05/20 20:00 Lymph # (Auto) 2.13 K/uL (1.2-3.4) 01/05/20 20:00 Marshall # (Auto) 0.84 K/uL (0.11-0.59) H 01/05/20 20:00 Eos # (Auto) 0.65 K/uL (0-0.5) H 01/05/20 20:00 Baso # (Auto) 0.04 K/uL (0-0.2) 01/05/20 20:00 PT 10.6 Seconds (9.0-12.0) 01/05/20 20:00 INR 1.0 (0.9-1.1) 01/05/20 20:00 APTT 26.8 Seconds (21.0-31.0) 01/05/20 20:00 PTT Ratio 1.0 01/05/20 20:00 Sodium 140 mmol/L (136-145) 01/05/20 20:00 Potassium 3.8 mmol/L (3.5-5.1) 01/05/20 20:00 Chloride 109 mmol/L (98-107) H 01/05/20 20:00 Carbon Dioxide 25 mmol/L (21-32) 01/05/20 20:00 Anion Gap 7.0 (3-11) 01/05/20 20:00 BUN 26 mg/dl (7-18) H 01/05/20 20:00 Creatinine 1.14 mg/dl (0.6-1.2) 01/05/20 20:00 Est Cr Clr Drug Dosing Not Reportable 01/05/20 20: Est GFR ( Amer) 50.1 01/05/20 20: Est GFR (Non-Af Amer) 43.2 01/05/20 20:00 BUN/Creatinine Ratio 22.4 (10-20) H 01/05/20 20:00 Glucose 94 mg/dl (70-99) 01/05/20 20:00 Calcium 9.2 mg/dl (8.5-10.1) 01/05/20 20: Phosphorus 3.2 mg/dl (2.5-4.9) 01/05/20: Magnesium 2.2 mg/dl (1.8-2.4) 01/05/20 20: Total Bilirubin 0.4 mg/dl (0.2-1) 01/05/20 20:00 AST 32 U/L (15-37) 01/05/20 20: ALT 19 U/L (12-78) 01/05/20 20: Alkaline Phosphatase 81 U/L (45-117) 01/05/20 20:00 Troponin I 0.024 ng/ml (0-0.045) 01/05/20: NT-Pro-B Natriuret Pep 8559 pg/ml (0-1800) H 01/05/20 20: Total Protein 7.6 gm/dl (6.4-8.2) 01/05/20 20: Albumin 4.1 gm/dl (3.4-5.0) 01/05/20 20:00 Globulin 3.5 gm/dl (2.5-4.0) 01/05/20 20: Albumin/Globulin Ratio 1.2 (0.9-2) 01/05/20 20: Lipase 134 U/L (73-393) 01/05/20 20: TSH 0.258 uIu/ml (0.300-4.500) L 01/05/20 20: Free T4 1.37 ng/dl (0.8-1.6) 01/05/20 20: Specimen Hemolysis 01/05/20 20:[address] chest: 1. No evidence for pulmonary embolus. 2. Moderate emphysematous change. 3. Fixed hiatal hernia. 4. Findings of mild congestive failure with small bilateral pleural effusions. EKG as per my interpretation : Rate 85, NSR, LAD, LAFB, T wave abnormalities lateral leads
[2020-01-05] MEDS ORDERED: POTASSIUM CHLORIDE 20 MEQ TABCR PO STA (23:40)
[2020-01-05] MEDS ORDERED: IPRATROPIUM BROMIDE NEB SOLN 0.02% 2.5 ML VIAL INH PRN (23:40)
[2020-01-05] MEDS ORDERED: ACETAMINOPHEN 325 MG TAB PO PRN (23:40)
[2020-01-05] MEDS ORDERED: XOPENEX/ATROVENT 1.25mg/0.5MG NEB COMBO NEB PRN (23:40)
[2020-01-05] MEDS ORDERED: LEVALBUTEROL 1.25MG/0.5ML NEB INH PRN (23:40)
[2020-01-05] MEDS ORDERED: NITROGLYCERIN SL 0.4 MG/TAB TAB SL PRN (23:40)
[2020-01-05 23:44] LABS: Allen Test POS (Pos); Base Excess ABG -3.6 mEq/L (-9-1.8); HCO3 ABG 22 mmol/L (19-24); Oxygen Saturation ABG 97.2 % (90-95); PCO2 ABG 39 mmHg (35-46); PO2 ABG 97 mmHg (80-95); pH ABG 7.36 (7.35-7.45)
[2020-01-06] MEDS: lamoTRIgine 25 MG TAB PO SCH ×3 (00:38→21:34)
[2020-01-06 02:40] LABS: Influenza A virus by PCR Neg for Influ A (Neg); Influenza B virus by PCR Neg for Influ B (Neg)
[2020-01-06] MEDS: LEVOTHYROXINE SODIUM 88 MCG TABLET PO SCH (06:10)
[2020-01-06 06:13] LABS: Basophils # (auto) 0.03 K/uL (0-0.2); Basophils % (auto) 0.5 %; Eosinophils # (auto) 0.35 K/uL (0-0.5); Eosinophils % (auto) 6.2 %; Hematocrit (blood only) 36.5 % (37-47); Hemoglobin 11.7 g/dL (12.0-16.0); Immature Granulocytes # (auto) 0.01 K/uL (0.00-0.02); Immature Granulocytes % (auto) 0.2 %; Lymphocytes % (auto) 30.2 %; Mean Corpuscular Hemoglobin 28.2 pg (25-34); Mean Corpuscular Hgb Conc 32.1 g/dL (32-36); Mean Platelet Volume 10.3 fL (7.4-10.4); Monocytes # (auto) 0.69 K/uL (0.11-0.59); Monocytes % (auto) 12.3 %; Neutrophils # (auto) 2.85 K/uL (1.4-6.5); Neutrophils % (auto) 50.6 %; Platelet Count 177 K/uL (130-400); RDW Coefficient of Variation 14.5 % (11.5-14.5); RDW Standard Deviation 46.7 fL (36.4-46.3); Red Blood Count 4.15 M/uL (4.2-5.4); White Blood Count 5.63 K/uL (4.8-10.8)
[2020-01-06 06:53] LABS: BUN Creatinine Ratio 20.7 (10-20); Calcium 9.5 mg/dl (8.5-10.1); Creatinine Clr Calc Pharmacy 27.6 ml/min; Est GFR (African American) 51.2; Est GFR (Non-African American) 44.1; Potassium 4.2 mmol/L (3.5-5.1)
[2020-01-06] MEDS ORDERED: FUROSEMIDE 40 MG/4 ML VIAL IV ONE (08:00)
[2020-01-06 08:41] LABS: Troponin I 0.769 ng/ml (0-0.045)
[2020-01-06] MEDS: FONDAPARINUX 2.5 MG/0.5 ML SYR SQ SCH ×2 (08:50→08:58)
[2020-01-06] MEDS: dilTIAZem HCL 120 MG CAPCR PO SCH (08:51)
[2020-01-06] MEDS: ISOSORBIDE MONO EXTENDED REL 30 MG TABCR PO SCH (08:51)
[2020-01-06] MEDS: ATORVASTATIN 40 MG TAB PO SCH (08:51)
[2020-01-06] MEDS: ARTIFICIAL TEARS OP SCH (08:53)
--- NOTE | 2020-01-06 09:48 | Hospitalist Progress Note ---
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 No evidence for pulmonary embolus. 2. Moderate emphysematous change. 3. Fixed hiatal hernia. 4. Findings of mild congestive failure with small bilateral pleural effusions. -- Lasix 40mg IV x 2 doses given off bipap, nasal cannula usually on Lasix 20mg po daily -- echo pending Cardiology consulted hx CAD/PVD per records -- 0.02 to 0.7 likely demand ischemia -- ekg: non specific ST, t wave changes in lateral leads -- no chest pain on asa, atorvastatin, metoprolol XL hypertension, slightly elevated -- improving seizure disorder, stable on regimen hypothyroidism, TSH noted to be low with normal free T4 secondary to sick euthyroid history bilateral PE/DVT hx heparin-induced thrombocytopenia. PCU DVT prophylaxis. 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) Full code Disposition pending lives with her in an apartment Admission and Anticipated Discharge Date Admission Date: January 05, 2020 Subjective ff up for shortness of breath, CHF exacerbation seen resting in bed, in good spirits, comfortable off oxygen supplement states she feels better this morning denies SOB, chest pain, palpitations, dizziness no cough, fever/chills no other symptoms Review of Systems Review of Systems: All systems reviewed & are unremarkable except as noted in HPI & below Physical Exam Physical Exam: General- oriented x 3, not in distress, speaks in sentences with no effort or accessory muscle use Head- atraumatic Eyes- PERRL, EOMI, anicteric, (+) subconjunctival erythema- right ENT- oropharynx clear Neck- supple, no JVD, no adenopathy, no thyromegaly; carotids +2/2, no bruits appreciated Lungs- clear to auscultation bilaterally, no rales/wheezes Heart- normal rate, regular rhythm; (+) murmur, no gallop, no rub appreciated Abdomen- normal bowel sounds, nondistended, soft, nontender, no masses or hepatosplenomegaly Extremities- no pretibial edema, no calf tenderness; peripheral pulses intact Neuro- alert, oriented x 3; CN 2-12 grossly intact; motor 5/5 bilaterally;sensation 100% on all extremities; no other gross focal neurologic deficits Skin- warm & dry Results & Data ([facility]) Vital Signs (Past 12 Hours) Vital Signs Temp Pulse Pulse Resp BP BP Pulse Ox 01/06/20 07:01 36.5 C 60 20 137/79 100 01/06/20 03:12 36.4 C L 72 16 148/79 H 100 01/06/20 00:57 69 01/06/20 00:19 36.4 C L 73 20 148/80 H 100 01/06/20 00:00 01/05/20 23:21 76 17 98 01/05/20 23:20 68 20 130/86 100 01/05/20 23:15 75 22 157/73 H 100 01/05/20 23:10 79 16 01/05/20 23:05 72 17 140/86 98 01/05/20 23:00 71 16 132/92 99 01/05/20 22:56 72 25 H 132/72 99 01/05/20 22:50 73 24 137/89 99 01/05/20 22:45 74 20 116/88 99 01/05/20 22:16 87 23 97 01/05/20 22:09 90 35 H 178/104 H 97 01/05/20 22:05 87 23 97 Pulse Ox 01/06/20 07:01 01/06/20 03:12 01/06/20 00:57 01/06/20 00:19 01/06/20 00:00 97 01/05/20 23:21 01/05/20 23:20 01/05/20 23:15 01/05/20 23:10 01/05/20 23:05 01/05/20 23:00 01/05/20 22:56 01/05/20 22:50 01/05/20 22:45 01/05/20 22:16 01/05/20 22:09 01/05/20 22:05
--- NOTE | 2020-01-06 12:09 | Cardiology Consultation ---
Date of Consultation January 06, 2020 Assessment & Plan (1) CHF (congestive heart failure): Acute systolic heart failure, likely in the setting of preserved ejection fraction based on echocardiogram performed two months ago with noted history of severe stenosis of a previously placed aortic valve bioprosthesis. Coexistent mitral regurgitation, felt to be at least moderate in severity and perhaps severe, tricuspid regurgitation, pulmonary hypertension. Also has underlying COPD. Compared to the prior study performed 04/27/2017, the peak CW Doppler velocity across the prosthetic aortic valve 2.2 meters/second at that time, as compared to 4.1 meters/second on 03/10/2019, and 5.5 meters/second on in 10/2019. The patient is felt to have complex valvular heart disease, including severe prosthetic aortic valve stenosis and significant mitral regurgitation and tricuspid regurgitation. Should undergone multidisciplinary evaluation in July 2019 with cardiac catheterization revealing a 70% right coronary artery lesion for which medical management was recommended, as well as elevated pulmonary pressures, 59/29, mean 27, and a pulmonary capillary wedge pressure of 28 mmHg. A follow-up CT of the chest revealed significant atherosclerosis of the aortic arch. The patient had been seen by cardiothoracic surgery at [facility] in July 2019, and at that time is felt that the patient was not describing symptoms that were significant enough to warrant high risk intervention. Per patient's description however she has developed symptoms in the interim dating back to September, which have progressed culminating in acute onset severe distress last evening as described in the HPI. The echocardiographic data from October 2019 certainly suggests significant progression of the prosthetic valve stenosis compared to the prior study, and of course that data is new compared to her most recent appointments with CT surgery and interventional cardiology. Per the CT surgery progress note it was felt that per review of the CT data, the " aortic root anatomy is forbidding for TAVR". The patient's initial bioprosthesis is a 21 mm Didi-Greene bioprosthesis placed in 2008, and often times a prosthesis of less than 23 mm size is too small to accommodate valve and valve trends catheter aortic valve implantation. Due to the patient's age and comorbidities, she of course is felt to be at high risk for operative aortic valve replacement, and of course there is consideration about whether intervention for the mitral valve and tricuspid valves should be pursued. The patient has been referred for second opinion to [facility], and per review of her office chart,She At the time of my assessment in the PCU additional records were recently sent to [facility] 2 weeks ago, and the patient had most recently heard back from them several days ago, and is awaiting news regarding an appointment. At present, I recommend holding further diuretic therapy today, and reassessing her clinically tomorrow in order to avoid precipitous drop in her preload. I will repeat an echocardiogram to reassess her valvular heart disease and biventricular systolic function. I had requested a repeat EKG in follow-up of the ST segment depression noted when she was distressed last evening. This was performed today at 12:38 PM with noted T wave inversion in the high lateral leads I and aVL, however the previously noted ST segment depression has resolved. Ultimately either high risk transcatheter or perhaps surgical intervention may be indicated either in [facility] or [facility]. 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 History of Present Illness Attending Physician: Vj Joel MD History of Present Illness Nel Pérez is an 89 year old female seen in cardiology consultation per the request of Dr Mathis for the evaluation of congestive heart failure with history of known severe bioprosthetic aortic valve stenosis. She follows with Dr Diamond South and Sergio Dalal PA-C of our practic with mest recent visit on . Patient notes worsening shortness of breath since September,. She notes that it has worsened to the point that she becomes short of breath with minimal walking or activity such as bending over. Yesterday she noted progressive shortness of breath culminating in a pain across the back of her shoulders and arms. She developed severe respiratory distress. [facility], her initial pulse oximetry was 89%. CT angiogram revealed no evidence of pulmonary embolism, but moderate emphysematous changes were noted as well as findings of mild congestive heart failure with small bilateral pleural effusions. She was supported with BiPAP therapy received 40 mg of IV furosemide at 2231 hrs. with subsequent improvement in her symptoms. At the time of my assessment in the PCU, room 216, she was comfortable and off BiPAP and she states that she had been transitioned off of it since arriving to the floor from the emergency department. Past Medical/Surgical History: 1.Severe aortic stenosis s/p October 10, 2009 aortic valve replacement with a 21 mm Didi-Greene pericardial valve. 2.Bioprosthetic aortic valve stenosis, severe. 3.Mitral regurgitation, at least moderate, perhaps severe per echo 10/2019 4.Postoperative AVR complications in 09/2009 included acute blood loss, thrombocytopenia, atrial fibrillation, and hypertension. 5.ASCVD -August 03, 2019 cardiac catheterization with a 70% mid RCA stenosis and mild disease in the left system. 6.Symptomatic PSVT. Patient previously referred to Dr. 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 She has had issues with hydralazine, amlodipine, ACEI, ARB, and HCTZ. 8.Hyperlipidemia 9. Partial symptomatic epilepsy with complex partial seizures 10.Osteoarthritis 11.Cervical disk disease 12. Admission was to [facility] in October 2015 with angioedema of the tongue and left cheek felt to be secondary to a new toothpaste versus losartan (actual cause remains undetermined). Course complicated by symptomatic PSVT with spontaneous conversion back to sinus rhythm. Family History: Mother with breast cancer at 56. Father was a smoker and from emphysema at 70. Sister with uterine cancer. Social History: Nonsmoker. No significant alcohol consumption. No illegal drug use. . Retired. Two grown children. Allergies Allergy/AdvReac Type Severity Reaction Status Date / Time heparin Allergy Severe + Verified 01/05/20 20:37 SEROTONIN RELEASE ASSAY 09/2009 [facility] losartan Allergy Severe angioedema Verified 01/05/20 20:37 Cipro Allergy Intermediate ? Verified 11/18/15 11:01 ciprofloxacin Allergy Intermediate ? Verified 01/05/20 20:37 fexofenadine Allergy Intermediate ? Verified 01/05/20 20:37 risedronate sodium Allergy Intermediate ? Verified 01/05/20 20:37 alendronate sodium Allergy Unknown UNKNOWN Verified 01/05/20 20:37 Bactrim Allergy Unknown ? Verified 11/18/15 11:01 lactose Allergy Unknown . Unverified 01/05/20 20:37 morphine Allergy Unknown ? Verified 07/03/19 10:39 raloxifene Allergy Unknown UNKNOWN Verified 07/03/19 10:39 sulfamethoxazole Allergy Unknown ? Verified 07/03/19 10:39 trimethoprim Allergy Unknown ? Verified 07/03/19 10:39 oxycodone AdvReac Intermediate NAUSEA Verified 07/03/19 10:39 albuterol AdvReac Mild tachycardia Verified 01/05/20 22:29 Home Medications Home Medications Medication Instructions Recorded Confirmed Type amoxicillin 2,000 mg PO UD 01/12/19 01/05/20 History aspirin 81 mg PO HS 01/12/19 01/05/20 History atorvastatin 40 mg PO QAM 01/12/19 01/05/20 History cetirizine-pseudoephedrine 1 tab PO PM 01/12/19 01/05/20 History [Zyrtec-D] cholecalciferol (vitamin D3) 2,000 unit PO QAM 01/12/19 01/05/20 History [Vitamin D3] diltiazem HCl 120 mg PO QAM 01/12/19 01/05/20 History magnesium oxide 500 mg PO QAM 01/12/19 01/05/20 History metoprolol succinate 100 mg PO HS 01/12/19 01/05/20 History polyvinyl alcohol-povidon(PF) 1 drp OPB DAILY 01/12/19 01/05/20 History [Refresh Classic (PF)] ranitidine HCl 150 mg PO BID 01/12/19 01/05/20 History acetaminophen [Tylenol Extra 500 mg PO QID PRN 07/03/19 01/05/20 History Strength] furosemide [Lasix] 20 mg PO DAILY 01/05/20 01/05/20 History isosorbide mononitrate 30 mg PO DAILY 01/05/20 01/05/20 History lamotrigine [Lamictal] 50 mg PO BID 01/05/20 01/05/20 History levothyroxine 88 mcg PO DAILY 01/05/20 01/05/20 History Patient History Medical History Carotid artery disease (Chronic) "bilateral bruits, < 50% stenosis bilaterally 2010" CKD (chronic kidney disease) stage 3, GFR 30-59 ml/min (Chronic) Diverticular disease of colon (Chronic) Dyslipidemia (Chronic) History of heparin-induced thrombocytopenia (Chronic) [place] [place]" Hypertension (Chronic) Hypothyroidism (Chronic) Osteoporosis (Chronic) Patella fracture (Resolved) "right patella 04/26/14" Supraventricular tachycardia (Chronic) Surgical History Status post aortic valve replacement with bioprosthetic valve (Chronic) "severe /AI; Dr. Clark [facility] 10/10/09; 21 mm Didi-Greene" Social History Preferred Language: Trinidadian Communication Ability: Effective Shrimp Cleaner Required: No Beliefs That Will Affect Care: None Current Living Situation: Spouse Other Information That Helps Us Care for You: No Feels Safe at Home: Yes Safety Concerns: Feels Safe At This Time Smoking Status: Unknown if ever smoked Hx Alcohol Use: No Hx Substance Use: No Review of Systems Review of Systems: All systems reviewed & are unremarkable except as noted in HPI & below Noted history of retinal injections, with resultant conjunctival erythema which is been present a few days. Physical Exam Physical Exam: Temp Pulse Resp BP Pulse Ox 36.5 C 63 20 127/71 98 01/06/20 10:50 01/06/20 11:05 01/06/20 10:50 01/06/20 10:50 01/06/20 10:50 Constitutional: No acute distress Respiratory: Coarse breath sounds at the bases bilaterally Cardiovascular: Rate/Rhythm: regular rhythm Heart Sounds: + murmur (I/ systolic murmur heard best at left sternal border) Gastrointestinal (Abdomen): normal bowel sounds, soft, nontender, no hepatosplenomegaly Skin: no rashes, warm and dry Neurologic: PERRL, EOMI, accommodation nl, no face palsy, no dysarthria Results & Data ([facility]) Vital Signs (Past 12 Hours) Vital Signs Temp Pulse Pulse Resp BP Pulse Ox Pulse Ox 01/06/20 11:05 63 01/06/20 10:50 36.5 C 65 20 127/71 98 01/06/20 07:01 36.5 C 60 20 137/79 100 01/06/20 03:12 36.4 C L 72 16 148/79 H 100 01/06/20 00:57 69 01/06/20 00:19 36.4 C L 73 20 148/80 H 100 01/06/20 00:00 97 Laboratory Results Cardiac Enzymes 01/05/20 01/06/20 Range/Units 20:00 06:01 AST 32 (15-37) U/L Troponin I 0.024 0.769 H* (0-0.045) ng/ml Coagulation 01/05/20 Range/Units 20:00 PT 10.6 (9.0-12.0) Seconds APTT 26.8 (21.0-31.0) Seconds CBC 01/05/20 01/06/20 Range/Units 20:00 06:01 WBC 7.04 5.63 (4.8-10.8) K/uL RBC 4.38 4.15 L (4.2-5.4) M/uL Hgb 12.6 11.7 L (12.0-16.0) g/dL Hct 38.5 36.5 L (37-47) % Plt Count 222 177 (130-400) K/uL Neut # (Auto) 3.36 2.85 (1.4-6.5) K/uL Lymph # (Auto) 2.13 1.70 (1.2-3.4) K/uL [place] # (Auto) 0.84 H 0.69 H (0.11-0.59) K/uL Eos # (Auto) 0.65 H 0.35 (0-0.5) K/uL Baso # (Auto) 0.04 0.03 (0-0.2) K/uL Comprehensive Metabolic Panel 01/05/20 01/06/20 Range/Units 20:00 06:01 Sodium 140 143 (136-145) mmol/L Potassium 3.8 4.2 (3.5-5.1) mmol/L Chloride 109 H 109 H (98-107) mmol/L Carbon Dioxide 25 31 (21-32) mmol/L BUN 26 H 23 H (7-18) mg/dl Creatinine 1.14 1.12 (0.6-1.2) mg/dl Glucose 94 93 (70-99) mg/dl Calcium 9.2 9.5 (8.5-10.1) mg/dl AST 32 (15-37) U/L ALT 19 (12-78) U/L Alkaline Phosphatase 81 (45-117) U/L Total Protein 7.6 (6.4-8.2) gm/dl Albumin 4.1 (3.4-5.0) gm/dl Intake and Output 01/05/20 01/06/20 01/06/20 22:59 06:59 14:59 Intake Total 600 / 660 60 / 660 Output Total 1450 / 1450 Balance 600 / -790 -1390 / -790 Intake: IV 600 / 600 OFIRMEV 1,000 mg In 100 ml @ 100 / 100 400 mls/hr IV NOW STA Rx#: [id number] Nss 500 ml @ 999 mls/hr IV . 500 / 500 Q31M ONE Rx#:[id number] Oral 60 / 60 Output: Urine 1450 / 1450 Other: Weight 55 kg 55.2 kg Diagnostic Findings Summary of transthoracic echocardiogram performed at [facility] as an outpatient on 11/12/2019, with images having been reviewed independently by the undersigned at the time of that study: The LV wall thickness is mildly increased (concentric). The left ventricular wall motion is normal. Calculated LV ejection Fraction = 52% (bi-plane method of discs). There is an aortic valve bioprosthetic present. The prosthetic aortic valve leaflets appear thickened with decreased excursion. Severe aortic valve prosthetic stenosis is present, with peak continues wave Doppler velocity of 5.5 meters/second, mean gradient 76 millimeters Hg, calculated aortic valve area 0.4 cm2 Severe mitral regurgitation is present. Severe tricuspid regurgitation is present. Severe pulmonary hypertension is present. The estimated pulmonary artery systolic pressure is 78mm Hg. Compared to the prior study performed 04/27/2017, the peak CW Doppler velocity across the prosthetic aortic valve was 2.2 meters/second at that time, as compared to 4.1 meters/second on 03/10/2019, and 5.5 meters/second on the current study. There has therefore been an interval progression of the prosthetic aortic valve stenosis. Mild pulmonary hypertension was noted at the time of the 02/28/2019 study, with estimated pulmonary artery systolic pressure in the range of 40-45 millimeters of Hg, as compared to > 70 millimeters Hg on the present study. EKG performed 01/05/2020 at 1955 hrs.: Normal sinus rhythm 87 bpm, first-degree AV block, mild ST segment depression noted in the lateral leads consistent with possible ischemia which is new compared to 2016.
--- NOTE | 2020-01-06 12:29 | Electrocardiogram Report ---
Test Reason : Blood Pressure : / mmHG Vent. Rate : 087 BPM Atrial Rate : 087 BPM P-R Int : 204 ms QRS Dur : 104 ms QT Int : 384 ms P-R-T Axes : 058 001 123 degrees QTc Int : 462 ms Normal sinus rhythm Left atrial enlargement Abnormal ECG When compared with ECG of 19-NOV-2015 06:51, ST now depressed in Lateral leads T wave inversion now evident in Lateral leads QRS duration has increased Confirmed by Raul Everett ([id number]) on 01/06/2020 12:29:10 PM Referred By: REFERRED SELF Confirmed By:Raul Everett
[2020-01-06] MEDS ORDERED: METOPROLOL SUCC 50MG EXT REL TAB PO SCH (21:00)
[2020-01-06] MEDS ORDERED: ASPIRIN 81 MG ECTAB PO SCH (21:00)
[2020-01-07] MEDS: LEVOTHYROXINE SODIUM 88 MCG TABLET PO SCH (06:26)
[2020-01-07] MEDS: dilTIAZem HCL 120 MG CAPCR PO SCH (08:39)
[2020-01-07] MEDS: ISOSORBIDE MONO EXTENDED REL 30 MG TABCR PO SCH (08:39)
[2020-01-07] MEDS: ATORVASTATIN 40 MG TAB PO SCH (08:39)
[2020-01-07] MEDS: lamoTRIgine 25 MG TAB PO SCH (08:40)
[2020-01-07] MEDS: ARTIFICIAL TEARS OP SCH (08:40)
--- NOTE | 2020-01-07 11:56 | Cardiology Progress Note ---
Date of Service January 07, 2020 Assessment & Plan (1) Acute respiratory failure with hypoxia: Acute on chronic heart failure with preserved ejection fraction (HFpEF) due to valvular heart disease. Severe bioprosthetic aortic valve stenosis Severe mitral regurgitation, with severe posterior mitral annular calcification. Echocardiogram performed today once again reveals severe prosthetic aortic valve stenosis, severe mitral regurgitation. Preserved LVEF of 55 to 60%, severe concentric LVH. Treatment of her mitral valve disease is complicated by severe mitral annular calcification affecting the posterior aspect of the valve, would make surgical repair and possible, would also make surgical glue percutaneous options complicated or not possible. She describes progressive symptoms since September,. Yesterday she felt much improved, she ate her meals comfortably, and walked a short distance with therapy utilizing a walker.She is back to her recent baseline at present. Telemetry reveals sinus rhythm in the range of 50 to 60 bpm. Her 21 mm Didi-Greene bioprosthetic aortic valve was placed in 2008. We will proceed with a dose of IV furosemide now, and tentatively plan to discharge her her prior to hospital dose of furosemide milligrams daily, with perhaps 40 mg 2 days/week on Mondays and Wednesdays. Continue plans for consultation at [facility] for high risk valvular intervention. Patient to be reassessed later this afternoon for possible discharge. Subjective Chief complaint: Follow-up exertional shortness of breath Subjective: Patient feeling well. The severe worsening shortness of breath that prompted her to present to the emergency department that was associated with bilateral shoulder and arm discomfort has improved. As noted in my consultation note yesterday, she required transient BiPAP support in the emergency room which was weaned prior to her being transferred to the telemetry unit on admission. She improved rapidly with administration of a dose of IV diuretic. Additional furosemide was held yesterday due to her frailty, and known preload dependence in the setting of severe prosthetic aortic valve stenosis. Review of Systems Review of Systems: All systems reviewed & are unremarkable except as noted in HPI & below Physical Exam Physical Exam: Temp Pulse Resp BP Pulse Ox 36.7 C 74 16 110/58 L 96 01/07/20 11:46 01/07/20 11:46 01/07/20 11:46 01/07/20 11:46 01/07/20 11:46 Constitutional: WD/WN, vitals as above Respiratory: normal respiratory effort, lungs clear to auscultation Cardiovascular: Rate/Rhythm: regular rhythm Heart Sounds: + murmur (II/ systolic murmur heard best at left sternal border) Skin: no rashes, warm and dry Neurologic: PERRL, EOMI, accommodation nl, no face palsy, no dysarthria Results & Data Vital Signs (Past 12 Hours) Vital Signs Temp Pulse Pulse Resp BP Pulse Ox 01/07/20 11:46 36.7 C 74 16 110/58 L 96 01/07/20 08:00 36.5 C 65 68 18 108/69 95 01/07/20 03:19 36.5 C 66 16 111/67 95
--- NOTE | 2020-01-07 11:57 | Hospitalist Progress Note ---
Date of Service January 07, 2020 Assessment & Plan (1) Acute hypoxemic respiratory failure: Secondary to decompensated heart failure hx chronic diastolic heart failure (EF 52%, TTE 2019) hx bioprosthetic AV stenosis (hx status post AVR) Valvular heart disease (severe MR/TR) Pulmonary hypertension -- BNP 8,500 CT chest:1. No evidence for pulmonary embolus. 2. Moderate emphysematous change. 3. Fixed hiatal hernia. 4. Findings of mild congestive failure with small bilateral pleural effusions. -- Lasix 40mg IV x 3 doses given, diuresed well weaned off bipap, nasal cannula -- Field Technician Dr. Snow consulted, recommendations: " Echocardiogram performed today once again reveals severe prosthetic aortic valve stenosis, severe mitral regurgitation. Preserved LVEF of 55 to 60%, severe concentric LVH. Treatment of her mitral valve disease is complicated by severe mitral annular calcification affecting the posterior aspect of the valve, would make surgical repair and possible, would also make surgical glue percutaneous options complicated or not possible. She describes progressive symptoms since September,. Yesterday she felt much improved, she ate her meals comfortably, and walked a short distance with therapy utilizing a walker.She is back to her recent baseline at present. Telemetry reveals sinus rhythm in the range of 50 to 60 bpm. Her 21 mm Didi-Greene bioprosthetic aortic valve was placed in 2008. We will proceed with a dose of IV furosemide now, and tentatively plan to discharge her her prior to hospital dose of furosemide milligrams daily, with perhaps 40 mg 2 days/week on Mondays and Wednesdays. Continue plans for consultation at [facility] for high risk valvular intervention." -- cleared for discharge by Dr. Snow Lasix 20mg po daily, except Mondays and Wednesdays- increase to 40mg --ff up with PCP in 1 week hx CAD/PVD per records -- 0.02 to 0.7 likely demand ischemia -- ekg: non specific ST, t wave changes in lateral leads -- no chest pain on asa, atorvastatin, metoprolol XL Hypertension -- stable seizure disorder, stable on regimen hypothyroidism, TSH noted to be low with normal free T4 secondary to sick euthyroid -- repeat LFTs as outpatient history bilateral PE/DVT hx heparin-induced thrombocytopenia. Disposition d/c home ff up with PCP in 1 week Continue plans for consultation at [facility] for high risk valvular intervention Admission and Anticipated Discharge Date Admission Date: January 05, 2020 Subjective ff up for CHF exacerbation seen resting in bed, comfortable not in distress, in good spirits no chest pain, dyspnea, dizziness, palpitations no other symptoms states she feels much better overall denies other symptoms Review of Systems Review of Systems: All systems reviewed & are unremarkable except as noted in HPI & below Physical Exam Physical Exam: General- oriented x 3, not in distress, speaks in sentences with no effort or accessory muscle use Eyes- anicteric Neck- no JVD Lungs- clear breath sounds bilaterally, no rales/wheezes Heart- normal rate, regular rhythm; (+) murmur Abdomen- normal bowel sounds, nondistended, soft, nontender Extremities- no pretibial edema, no calf tenderness Neuro- alert, oriented x 3; no gross focal neurologic deficits Skin- warm & dry Results & Data ([facility]) Vital Signs (Past 12 Hours) Vital Signs Temp Pulse Pulse Resp BP Pulse Ox 01/07/20 11:46 36.7 C 74 16 110/58 L 96 01/07/20 08:00 36.5 C 65 68 18 108/69 95 01/07/20 03:19 36.5 C 66 16 111/67 95 Laboratory Results Laboratory Results - last 24 hr 01/07/20 12:39 Sodium 139 Potassium 4.1 Chloride 105 Carbon Dioxide 29 Anion Gap 6.0 BUN 31 H Creatinine 1.48 H D Est Cr Clr Drug Dosing 21.0 Est GFR ( Amer) 36.5 Est GFR (Non-Af Amer) 31.5 BUN/Creatinine Ratio 20.9 H Glucose 142 H Calcium 9.7
[2020-01-07] MEDS ORDERED: FUROSEMIDE 20 MG in SYRINGE 0 ML IV ONE (12:15)
[2020-01-07 13:21] LABS: BUN Creatinine Ratio 20.9 (10-20); Calcium 9.7 mg/dl (8.5-10.1); Est GFR (African American) 36.5; Est GFR (Non-African American) 31.5; Potassium 4.1 mmol/L (3.5-5.1)
--- NOTE | 2020-01-07 18:57 | Discharge Summary ---
Date of Service January 07, 2020 Admission HPI Per Admitting Provider History obtained from patient, family, and records. Medical history significant for chronic diastolic heart failure (EF 52%, TTE 2019), CAD/PVD per records, PSVT as per records, aortic stenosis status post bioprosthetic AVR, bioprosthetic AV stenosis, severe mitral/regurgitation, pulmonary hypertension as per records, hypertension, seizure disorder, hypothyroidism, history bilateral PE/DVT, hx heparin-induced thrombocytopenia, macular degeneration. Recent confinement October 2015 for PSVT, tongue edema secondary to Losartan. Patient underwent bioprosthetic AVR for aortic stenosis last September 2019. Patient noted gradually worsening shortness of breath on exertion over the last 6 months as per family. Patient evaluated by [facility] cardiology September 2020. Symptoms attributed to valvular heart disease including severe bioprosthetic aortic valve stenosis. Observation/medical management recommended at time of encounter. Consider surgical intervention with declining functional capacity, refractory CHF, or worsening exertional symptoms. Updated outpatient 2D echo results from October 2019 as follows : The LV wall thickness is mildly increased (concentric). The left ventricular wall motion is normal. Calculated LV ejection Fraction = 52% (bi-plane method of discs). There is an aortic valve bioprosthetic present. The prosthetic aortic valve leaflets appear thickened with decreased excursion. Severe aortic valve prosthetic stenosis is present, with peak continues wave Doppler velocity of 5.5 meters/second, mean gradient 76 millimeters Hg, calculated aortic valve area 0.4 cm2 Severe mitral regurgitation is present. Severe tricuspid regurgitation is present. Severe pulmonary hypertension is present. The estimated pulmonary artery systolic pressure is 78mm Hg. Compared to the prior study performed 04/27/2017, the peak CW Doppler velocity across the prosthetic aortic valve was 2.2 meters/second at that time, as compared to 4.1 meters/second on 03/10/2019, and 5.5 meters/second on the current study. There has therefore been an interval progression of the prosthetic aortic valve stenosis. Mild pulmonary hypertension was noted at the time of the 02/28/2019 study, with estimated pulmonary artery systolic pressure in the range of 40-45 millimeters of Hg, as compared to > 70 millimeters Hg on the present study. Worsening exertional dyspnea symptoms on follow-up outpatient Cardiology visit 3 weeks ago. Outpatient diuretic regimen increased. Patient awaiting appointment second opinion from [facility] CT surgery as family was told by [facility] CT surgeons that they would not be comfortable doing procedure at [facility]. This afternoon patient noted dizziness, worsening shortness of breath on exertion with chest heaviness/back pain with dry cough symptoms. No fever, no chills. Denies unusual fluid retention. Compliant with home diuretic regimen. Patient brought to the ER. Progressive respiratory distress noted upon return from CT. BiPAP initiated at the ER. 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, lives with Admission Exam Per Admitting Provider GENERAL: Slightly uncomfortable, minimal respiratory distress SKIN: Normal color, warm HEENT: [place] palpebral conjunctivae, conjunctivitis right (chronic from eye injections as per ), no ptosis, dry buccal mucosa, BiPAP in place NECK : Supple, no tenderness CHEST : Decreased breath sounds, basilar crackles, no tenderness HEART : RRR, systolic murmur ABDOMEN: Some distention, nontender EXTREMITIES : Minimal LE swelling, no LE /tenderness, no other conspicuous deformities noted NEUROLOGIC : Coherent, no facial asymmetry, no other gross focality Principal Diagnosis Acute on chronic heart failure with preserved ejection fraction (HFpEF) due to valvular heart disease. Discharge Exam General- oriented x 3, not in distress, speaks in sentences with no effort or accessory muscle use Eyes- anicteric Neck- no JVD Lungs- clear breath sounds bilaterally, no rales/wheezes Heart- normal rate, regular rhythm; (+) murmur Abdomen- normal bowel sounds, nondistended, soft, nontender Extremities- no pretibial edema, no calf tenderness Neuro- alert, oriented x 3; no gross focal neurologic deficits Skin- warm & dry Discharge Data Allergies Allergy/AdvReac Type Severity Reaction Status Date / Time heparin Allergy Severe + Verified 01/05/20 20:37 SEROTONIN RELEASE ASSAY 09/2009 [facility] losartan Allergy Severe angioedema Verified 01/05/20 20:37 Cipro Allergy Intermediate ? Verified 11/18/15 11:01 ciprofloxacin Allergy Intermediate ? Verified 01/05/20 20:37 fexofenadine Allergy Intermediate ? Verified 01/05/20 20:37 risedronate sodium Allergy Intermediate ? Verified 01/05/20 20:37 alendronate sodium Allergy Unknown UNKNOWN Verified 01/05/20 20:37 Bactrim Allergy Unknown ? Verified 11/18/15 11:01 lactose Allergy Unknown . Unverified 01/05/20 20:37 morphine Allergy Unknown ? Verified 07/03/19 10:39 raloxifene Allergy Unknown UNKNOWN Verified 07/03/19 10:39 sulfamethoxazole Allergy Unknown ? Verified 07/03/19 10:39 trimethoprim Allergy Unknown ? Verified 07/03/19 10:39 oxycodone AdvReac Intermediate NAUSEA Verified 07/03/19 10:39 albuterol AdvReac Mild tachycardia Verified 01/05/20 22:29 Consultations 01/05/20 21:47 ED Decision to Admit Stat 01/05/20 23:40 Consult Cardiology Routine Ordered Studies 01/05/20 20:18 CT angio chest PE protocol Stat FINDINGS: Atherosclerotic change thoracic aorta. Fixed hiatal hernia. Bony vasculature enhances appropriately. No significant filling defects. Baseline emphysematous change of the lungs. Scattered areas of atelectatic change. Cardiac size is increased. Trace amount pleural fluid both lung bases. IMPRESSION: 1. No evidence for pulmonary embolus. 2. Moderate emphysematous change. 3. Fixed hiatal hernia. 4. Findings of mild congestive failure with small bilateral pleural effusions. Hospital Course (1) Acute hypoxemic respiratory failure: Secondary to decompensated heart failure hx chronic diastolic heart failure (EF 52%, TTE 2019) hx bioprosthetic AV stenosis (hx status post AVR) Valvular heart disease (severe MR/TR) Pulmonary hypertension -- BNP 8,500 CT chest:1. No evidence for pulmonary embolus. 2. Moderate emphysematous change. 3. Fixed hiatal hernia. 4. Findings of mild congestive failure with small bilateral pleural effusions. -- Lasix 40mg IV x 3 doses given, diuresed well weaned off bipap, nasal cannula -- Recycle Coordinator Dr. Snow consulted, recommendations: " Echocardiogram performed today once again reveals severe prosthetic aortic valve stenosis, severe mitral regurgitation. Preserved LVEF of 55 to 60%, severe concentric LVH. Treatment of her mitral valve disease is complicated by severe mitral annular calcification affecting the posterior aspect of the valve, would make surgical repair and possible, would also make surgical glue percutaneous options complicated or not possible. She describes progressive symptoms since September,. Yesterday she felt much improved, she ate her meals comfortably, and walked a short distance with therapy utilizing a walker.She is back to her recent baseline at present. Telemetry reveals sinus rhythm in the range of 50 to 60 bpm. Her 21 mm Didi-Greene bioprosthetic aortic valve was placed in 2008. We will proceed with a dose of IV furosemide now, and tentatively plan to discharge her her prior to hospital dose of furosemide milligrams daily, with perhaps 40 mg 2 days/week on Mondays and Wednesdays. Continue plans for consultation at [facility] for high risk valvular intervention." -- cleared for discharge by Dr. Snow Lasix 20mg po daily, except Mondays and Wednesdays- increase to 40mg --ff up with PCP in 1 week hx CAD/PVD per records -- 0.02 to 0.7 likely demand ischemia -- ekg: non specific ST, t wave changes in lateral leads -- no chest pain on asa, atorvastatin, metoprolol XL Hypertension -- stable seizure disorder, stable on regimen hypothyroidism, TSH noted to be low with normal free T4 secondary to sick euthyroid -- repeat LFTs as outpatient history bilateral PE/DVT hx heparin-induced thrombocytopenia. Disposition d/c home ff up with PCP in 1 week Continue plans for consultation at [facility] for high risk valvular intervention Total Time Total Time Spent Total Time Spent (In Minutes): 45 minutes Discharge Plan Discharge Items Patient Disposition: Home - Self-Care Reason For Visit: RESP FAILURE Discharge Diagnosis: ACUTE RESPIRATORY FAILURE WITH HYPOXIA, CHRONIC HEART FAILURE, VALVULAR HEART DISEASE Activity: As commented below Activity Comment: Resume activity gradually as tolerated Lifting: Wait until after follow-up appointment Exercise/Sports: Wait until after follow-up appointment Driving/Machine Use: No driving Non-emergency contact: Primary Care Provider Call non-emergency contact if: you have any medication questions and your symptoms worsen Follow-up/Referrals: Edd Guardado MD [Primary Care Provider] - 01/14/20 10:45 am Diet: Heart Healthy Add Attending Provider Instructions: Medication change: Lasix 20 mg daily except for Mondays and Wednesdays take 40 mg once a day. Follow-up with Dr. Guardado 1 week. Follow-up with residence manager as scheduled. Call your Primary Care doctor if any of the following symptoms or problems start or get worse: Shortness of breath or difficulty breathing Wake up at night short of breath Chest pain Cough Swelling of your hands, feet, or legs More fatigued or tired with your normal activity Palpitations - sudden fast heart beats WEIGHT Weigh yourself every morning after using the bathroom. Use the same scale. Wear the same amount of clothing. Write your weight down on a chart. Call your Primary Care doctor if you gain more than 2-3 pounds in 1-2 days. MEDICATIONS Use this discharge instruction sheet for medication instructions. Take your medications at the time your doctor ordered. Do not skip a dose of your medicines. If you miss a dose of medicine, take it as soon as possible, but DO NOT DOUBLE A DOSE. Read your medicine information when you get home. Know all of the side effects of your medicine. If in doubt, ask your pharma cist Call your Primary Care doctor's office if you have any side effects. Be sure all of your doctors know what medicine and herbs you take (including cold, flu, and herbal medicine). Take the following with you to your follow-up doctor appointments: Weight Chart Medication List List of questions Who to Call and When: Call 911 or go to the Emergency Room if: If at any time you feel your situation is an emergency You have tightness or pain in your chest that does not go away with rest or Nitroglycerin You are very short of breath even with rest . Pending Studies at Discharge: No Stand-Alone Forms: My [facility], Smoking Cessation Medications and DC Order Prescriptions: Continued cetirizine-pseudoephedrine [Zyrtec-D] 5-120 mg tablet extended release 12 hr 1 tab PO PM RF: 0 amoxicillin 500 mg capsule 2,000 mg PO UD RF: 0 atorvastatin 40 mg tablet 40 mg PO QAM RF: 0 metoprolol succinate 100 mg tablet extended release 24 hr 100 mg PO HS RF: 0 aspirin 81 mg Tablet,Delayed Release (Dr/Ec) 81 mg PO HS RF: 0 ranitidine HCl 150 mg tablet 150 mg PO BID RF: 0 magnesium oxide 500 mg Tablet 500 mg PO QAM RF: 0 diltiazem HCl 120 mg capsule,extended release 24hr 120 mg PO QAM RF: 0 Refresh Classic (PF) 1.4-0.6 % Dropperette 1 drp OPB DAILY RF: 0 cholecalciferol (vitamin D3) [Vitamin D3] 2,000 unit Tablet 2,000 unit PO QAM RF: 0 acetaminophen [Tylenol Extra Strength] 500 mg Tablet 500 mg PO QID PRN (Reason: Pain) RF: 0 levothyroxine 88 mcg tablet 88 mcg PO DAILY RF: 0 isosorbide mononitrate 30 mg tablet extended release 24 hr 30 mg PO DAILY RF: 0 lamotrigine [Lamictal] 25 mg tablet 50 mg PO BID RF: 0 Changed furosemide [Lasix] 20 mg tablet 20 mg PO UD 30 Days Qty: 30 RF: 0 Discharge Orders: Discharge Order (Routine); Ordered 01/07/20 Ordered By: Vj Joel Admission Data Admit Date/Time: 01/05/20 22:55 Attending Provider: Vj Joel Admit Provider: Ventura Mathis Primary Care Provider: Edd Guardado Other Providers: Ventura Mathis ; Federico South Other Interventions: Discharge Summary Assessment (RN) Last Done: 01/07/20 15:37 DC Date/Time DO NOT enter until pt leaves facility: 01/07/20 15:54
--- NOTE | 2020-01-07 22:39 | Electrocardiogram Report ---
Test Reason : Blood Pressure : / mmHG Vent. Rate : 065 BPM Atrial Rate : 065 BPM P-R Int : 186 ms QRS Dur : 088 ms QT Int : 430 ms P-R-T Axes : 075 -23 134 degrees QTc Int : 447 ms Normal sinus rhythm Left ventricular hypertrophy with repolarization abnormality Abnormal ECG When compared with ECG of 05-JAN-2020 19:55, No significant change Confirmed by Anand Garcia ([id number]) on 01/07/2020 10:39:27 PM Referred By: REFERRED SELF Confirmed By:Anand Garcia
== END 2020-01-07 15:54 | disposition home or self-care (01) | DRG 291 ==
LOC: ED 19:47 → 2S 22:55

== ENCOUNTER 2020-03-03 06:10 | Observation (INO) ==
--- NOTE | 2020-03-03 06:34 | Emergency Department Note ---
History of Present Illness General Chief complaint: Cardiac Assessment Stated complaint: chest pain, palpatations Time Seen by Provider: 03/03/20 06:30 Source: patient, EMS, RN notes reviewed and old records reviewed Mode of arrival: EMS Limitations: no limitations History of Present Illness Provider complaint: Rt arm pain Onset (ago): hour(s) 1 Location: upper extremity Radiation: non-radiation Severity: moderate Pain Consistency: + now resolved Current Pain Intensity: 0 Quality: + burning Relieved By: + none Exacerbated By: + none Associated symptoms: + denies other symptoms; no chest pain, no diaphoresis, no fever/chills, no headaches, no nausea/vomiting, no shortness of breath and no weakness Treatments prior to arrival: none This is an 89-year-old female who presents emergency department complaining of right arm pain. The patient woke up and was very diaphoretic and felt hot. At that time she was having right arm pain. The patient's symptoms eventually got better. EMS was summoned and she was brought to the emergency department. Upon arrival in the emergency department the patient denies any pain. She has not had her blood pressure medications this morning. Of note the patient recently had an aortic valve replacement done at the [facility] approximately 1 week ago. She denies any abdominal pain headache chest pain Home Medications Home Medications Medication Instructions Recorded Confirmed Type amoxicillin 2,000 mg PO UD 01/12/19 03/03/20 History aspirin 81 mg PO DAILY 01/12/19 03/03/20 History atorvastatin 20 mg PO QAM 01/12/19 03/03/20 History cholecalciferol (vitamin D3) 2,000 unit PO QPM 01/12/19 03/03/20 History [Vitamin D3] diltiazem HCl 120 mg PO QAM 01/12/19 03/03/20 History metoprolol succinate 50 mg PO HS 01/12/19 03/03/20 History isosorbide mononitrate 30 mg PO DAILY 01/05/20 03/03/20 History lamotrigine [Lamictal] 50 mg PO AMHS 01/05/20 03/03/20 History cephalexin 500 mg PO BID 03/03/20 03/03/20 History cetirizine [Zyrtec] 5 mg PO QPM 03/03/20 03/03/20 History clopidogrel 75 mg PO DAILY 03/03/20 03/03/20 History famotidine [Pepcid] 20 mg PO DAILY 03/03/20 03/03/20 History levothyroxine 75 mcg PO QAM 03/03/20 03/03/20 History magnesium oxide 400 mg PO QAM 03/03/20 03/03/20 History Allergies Allergy/AdvReac Type Severity Reaction Status Date / Time heparin Allergy Severe + Verified 03/03/20 06:36 SEROTONIN RELEASE ASSAY 09/2009 [facility] losartan Allergy Severe angioedema Verified 03/03/20 06:36 Cipro Allergy Intermediate ? Verified 11/18/15 11:01 ciprofloxacin Allergy Intermediate ? Verified 03/03/20 06:36 fexofenadine Allergy Intermediate ? Verified 03/03/20 06:36 risedronate sodium Allergy Intermediate ? Verified 03/03/20 06:36 alendronate sodium Allergy Unknown UNKNOWN Verified 03/03/20 06:36 Bactrim Allergy Unknown ? Verified 11/18/15 11:01 lactose Allergy Unknown . Unverified 03/03/20 06:36 morphine Allergy Unknown ? Verified 03/03/20 06:36 raloxifene Allergy Unknown UNKNOWN Verified 03/03/20 06:36 sulfamethoxazole Allergy Unknown ? Verified 03/03/20 06:36 trimethoprim Allergy Unknown ? Verified 03/03/20 06:36 oxycodone AdvReac Intermediate NAUSEA Verified 03/03/20 06:36 albuterol AdvReac Mild tachycardia Verified 03/03/20 06:36 Past Med/Surg History Medical History Acute hypoxemic respiratory failure Acute respiratory failure with hypoxia (Inactive) Carotid artery disease (Chronic) "bilateral bruits, < 50% stenosis bilaterally 2010" CHF (congestive heart failure) (Inactive) CKD (chronic kidney disease) stage 3, GFR 30-59 ml/min (Chronic) Diverticular disease of colon (Chronic) Dyslipidemia (Chronic) Facial laceration (Resolved) "upper lip; repaired 04/26/14; remove sutures 05/01-05/03" History of DVT (deep vein thrombosis) H/O DVT, 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 [facility] [place]; 21 mm Didi-Greene" H/O prosthetic aortic valve stensois - 02/26/2020: TAVR with Greene Natali S3#20 at [facility] by Dr Lundberg Family History Other Cancer Social History Preferred Language: Tristanian Communication Ability: Effective Head Of Sales Required: No Beliefs That Will Affect Care: None Current Living Situation: Spouse Feels Safe at Home: Yes Safety Concerns: Feels Safe At This Time Smoking Status: Never smoker Hx Alcohol Use: No Hx Substance Use: No Review of Systems A total of 10 systems reviewed and were otherwise negative Physical Exam Vital Signs Vital Signs - 24 hr 03/03/20 06:16 03/03/20 07:39 03/03/20 08:00 Temperature 37.0 C Temperature Source Oral Pulse Rate 81 Pulse Rate [Apical] 68 64 Pulse Rhythm [Apical] Regular Regular Pulse Strength [Apical] Normal Respiratory Rate 18 18 17 Respiratory Effort / Characteristics Non-Labored Spontaneous Non-Labored Spontaneous Non-Labored Spontaneous Respiratory Depth Normal Normal Normal Respiratory Pattern Regular Regular Regular Blood Pressure 227/94 H Blood Pressure [Left Arm] 189/78 H 191/74 H Blood Pressure Mean 138 Blood Pressure Mean [Left Arm] 115 113 Blood Pressure Position Sitting Pulse Oximetry 98 97 95 Oxygen Delivery Method Room Air Room Air Room Air Sepsis Recent Fever Within 48 Hours No Sepsis Action Taken by Nursing No Action Required VITAL SIGNS - Vital signs and nursing notes were reviewed. GENERAL - 89-year-old female appearing stated age who is in no acute distress. Communicates well with provider and answers questions appropriately. SKIN - Without rashes. HEAD - NC/AT. EYES - PERRL with EOMI bilaterally. Sclera anicteric. Palpebral conjunctiva pink and moist with no injection noted. EARS - No deformities of external structures noted on gross examination bilaterally. No pain elicited with palpation of the tragus bilaterally. External auditory canals without discharge or otorrhea. Tympanic membranes pearly palma without retraction or bulging. No fluid or purulent material visualized behind the TM. Handle of malleus, umbo, cone of light, pars tensa/flaccid all easily visualized. NOSE - Midline and without cyanosis. No epistaxis or purulent drainage noted. Septum midline without deviation or septal hematoma noted. MOUTH/OROPHARYNX - Without perioral cyanosis. Buccal mucosa pink and moist and without leukoplakia. Tongue midline with equal elevation of palate bilaterally. No tonsillar hypertrophy, erythema, or exudates noted. dentition noted. NECK - Neck with FROM. Supple to palpation. lymphadenopathy noted. No nuchal rigidity. LUNGS - Chest wall symmetric without accessory muscle use, intercostals retractions, or central cyanosis. Normal vesicular breath sounds CTA B/L. No wheezes, rales, or rhonchi appreciated. CARDIAC - RRR with S1/S2. No murmur, rubs, or gallops appreciated. ABDOMEN - Abdominal contour without pulsations or visible masses. BS normoactive all four quadrants. No tenderness, palpable masses, hepatosplenomegaly, or ascites noted. EXTREMITIES - No clubbing or peripheral cyanosis. No pretibial edema present. +3/5 radial, posterior tibial, and dorsalis pedis pulses palpated throughout. +5/5 strength noted in UE/LE bilaterally. NEUROLOGIC - Cranial nerves II through XII grossly intact. Sensory intact to light touch throughout. Patellar reflexes +2/4. PSYCH - A&Ox3 and cooperates fully with examiner. Pt is very pleasant and interacts well with examiner. Course Administered Medications Discontinued Medications Diltiazem HCl (Tiazac) 120 mg PO [facility] Stop: 04/02/20 08:59 Last Admin: 03/03/20 07:40 Dose: 120 mg Documented by: [id number] Medical Decision Making Differential Diagnosis Cardiac ischemia, aortic dissection, pulmonary embolism, pneumothorax, pneumonia, pericarditis, myocarditis, esophageal rupture, GERD, cholecystitis, pancreatitis, musculoskeletal, as well as other pathologies. Medical Records Attestation: I reviewed the patient's medical records. [facility], [place] [phone] XRay Report Patient: JOSE CANTOR Admit Date: 03/03/20 MR#: [id number] Address1: [address] Acct ID:[id number] Address2: Date: 1930 [facility] Zip: [place] [address] Age: 89 Location: ED Sex: F Room/Bed: Att Phy: Diagnosis: chest pain, palpatations Manju Phy: Edd Guardado MD Service Date: 03/03/20 [facility] Phy: Interpreting Phy: Keaton Casey MD Admit Phy: Ordering Phy: Arnol Knowles MD cc: ~ XR chest 1V portable CLINICAL HISTORY: 89 years-old Female presenting with Chest Pain. TECHNIQUE: Portable upright AP view of the chest was obtained. COMPARISON: 01/05/2020. FINDINGS: Median sternotomy wires, epicardial pacing wires, mediastinal surgical clips, and prosthetic aortic valve noted. Atherosclerosis of the aortic arch. Cardiac silhouette enlarged. Prominence of the main pulmonary artery. Pulmonary vascular prominence has worsened from prior. Interstitial prominence is stable from prior. Lungs are hyperinflated. Reticular opacities at the lung bases likely relate to prominence of the interstitium. There may be superimposed linear opacities. No large effusion or pneumothorax. Osteopenia suspected. Degenerative changes of the spine. Hiatal hernia may be present. IMPRESSION: 1. Interval worsening of volume overload and congestive change. No radha pulmonary edema at this time. 2. Underlying emphysema. Minimal bibasilar atelectasis or scarring. No focal infiltrate to suggest pneumonia. 3. Pulmonary artery hypertension suggested. 6 ACT 112: Negative or not required by law. Electronically signed by: Keaton Casey M.D. 03/03/2020 6:59 AM Dictated: 03/03/20 0657 Transcribed: 03/03/20 0657 Home Medications Current Medication List: was personally reviewed by me Laboratory Data Attestation: I reviewed the patient's lab results. Result diagrams: 03/03/20 05:55 03/03/20 05:55 Lab Results 03/03/20 03/03/20 03/03/20 Range/Units 05:55 05:55 05:55 WBC 5.17 (4.8-10.8) K/uL RBC 3.77 L (4.2-5.4) M/uL Hgb 11.0 L (12.0-16.0) g/dL Hct 33.5 L (37-47) % MCV 88.9 (80-100) fL MCH 29.2 (25-34) pg MCHC 32.8 (32-36) g/dL RDW Std Deviation 51.0 H (36.4-46.3) fL RDW Coeff of Cheryl 15.9 H (11.5-14.5) % Plt Count 212 (130-400) K/uL MPV 11.1 H (7.4-10.4) fL Immature Gran % (Auto) 0.2 % Neut % (Auto) 41.6 % Lymph % (Auto) 35.4 % [place] % (Auto) 13.7 % Eos % (Auto) 8.5 % Baso % (Auto) 0.6 % Immature Gran # (Auto) 0.01 (0.00-0.02) K/uL Neut # (Auto) 2.15 (1.4-6.5) K/uL Lymph # (Auto) 1.83 (1.2-3.4) K/uL [place] # (Auto) 0.71 H (0.11-0.59) K/uL Eos # (Auto) 0.44 (0-0.5) K/uL Baso # (Auto) 0.03 (0-0.2) K/uL PT Cancelled INR Cancelled APTT Cancelled PTT Ratio Cancelled Sodium 141 (136-145) mmol/L Potassium 3.9 (3.5-5.1) mmol/L Chloride 110 H (98-107) mmol/L Carbon Dioxide 25 (21-32) mmol/L Anion Gap 6.0 (3-11) BUN 16 (7-18) mg/dl Creatinine 1.00 (0.6-1.2) mg/dl Est Cr Clr Drug Dosing 30.0 ml/min Est GFR ( Amer) 58.7 Est GFR (Non-Af Amer) 50.6 BUN/Creatinine Ratio 16.4 (10-20) Glucose 88 (70-99) mg/dl Calcium 9.3 (8.5-10.1) mg/dl Magnesium (1.8-2.4) mg/dl Total Bilirubin 0.6 (0.2-1) mg/dl AST 29 (15-37) U/L ALT 20 (12-78) U/L Alkaline Phosphatase 72 (45-117) U/L Total Creatine Kinase 73 (26-192) U/L CK-MB (CK-2) 2.0 (0.5-3.6) ng/ml CK/CKMB % Calc 2.7 (0-3.0) Troponin I 0.049 H* (0-0.045) ng/ml NT-Pro-B Natriuret Pep (0-1800) pg/ml Total Protein 6.9 (6.4-8.2) gm/dl Albumin 3.7 (3.4-5.0) gm/dl Globulin 3.2 (2.5-4.0) gm/dl Albumin/Globulin Ratio 1.2 (0.9-2) Lipase 142 (73-393) U/L TSH (0.300-4.500) uIu/ml Urine Color Urine Appearance (Clear) Urine pH (4.5-7.5) Ur Specific [place] (1.000-1.030) Urine Protein (Negative) Urine Glucose (UA) (Negative) Urine Ketones (Negative) Urine Blood (Negative) Urine Nitrite (Negative) Urine Bilirubin (Negative) Urine Urobilinogen (Negative) Ur Leukocyte Esterase (Negative) Urine WBC (Auto) (0-5) /hpf Urine RBC (Auto) (0-4) /hpf U Hyaline Cast (Auto) (0-5) /lpf U Epithel Cells (Auto) (0-5) /lpf Urine Bacteria (Auto) (Negative) 03/03/20 03/03/20 03/03/20 Range/Units 05:55 07:20 07:35 WBC (4.8-10.8) K/uL RBC (4.2-5.4) M/uL Hgb (12.0-16.0) g/dL Hct (37-47) % MCV (80-100) fL MCH (25-34) pg MCHC (32-36) g/dL RDW Std Deviation (36.4-46.3) fL RDW Coeff of Cheryl (11.5-14.5) % Plt Count (130-400) K/uL MPV (7.4-10.4) fL Immature Gran % (Auto) % Neut % (Auto) % Lymph % (Auto) % [place] % (Auto) % Eos % (Auto) % Baso % (Auto) % Immature Gran # (Auto) (0.00-0.02) K/uL Neut # (Auto) (1.4-6.5) K/uL Lymph # (Auto) (1.2-3.4) K/uL [place] # (Auto) (0.11-0.59) K/uL Eos # (Auto) (0-0.5) K/uL Baso # (Auto) (0-0.2) K/uL PT 10.5 INR 1.0 APTT 25.9 PTT Ratio 0.9 Sodium (136-145) mmol/L Potassium (3.5-5.1) mmol/L Chloride (98-107) mmol/L Carbon Dioxide (21-32) mmol/L Anion Gap (3-11) BUN (7-18) mg/dl Creatinine (0.6-1.2) mg/dl Est Cr Clr Drug Dosing ml/min Est GFR ( Amer) Est GFR (Non-Af Amer) BUN/Creatinine Ratio (10-20) Glucose (70-99) mg/dl Calcium (8.5-10.1) mg/dl Magnesium 2.2 (1.8-2.4) mg/dl Total Bilirubin (0.2-1) mg/dl AST (15-37) U/L ALT (12-78) U/L Alkaline Phosphatase (45-117) U/L Total Creatine Kinase (26-192) U/L CK-MB (CK-2) (0.5-3.6) ng/ml CK/CKMB % Calc (0-3.0) Troponin I (0-0.045) ng/ml NT-Pro-B Natriuret Pep 2529 H (0-1800) pg/ml Total Protein (6.4-8.2) gm/dl Albumin (3.4-5.0) gm/dl Globulin (2.5-4.0) gm/dl Albumin/Globulin Ratio (0.9-2) Lipase (73-393) U/L TSH 5.010 H (0.300-4.500) uIu/ml Urine Color Yellow Urine Appearance Clear (Clear) Urine pH 7.0 (4.5-7.5) Ur Specific [place] 1.011 (1.000-1.030) Urine Protein Negative (Negative) Urine Glucose (UA) Negative (Negative) Urine Ketones Negative (Negative) Urine Blood Negative (Negative) Urine Nitrite Negative (Negative) Urine Bilirubin Negative (Negative) Urine Urobilinogen Negative (Negative) Ur Leukocyte Esterase Trace H (Negative) Urine WBC (Auto) 1-5 (0-5) /hpf Urine RBC (Auto) 5-10 H (0-4) /hpf U Hyaline Cast (Auto) 1-5 (0-5) /lpf U Epithel Cells (Auto) >30 H (0-5) /lpf Urine Bacteria (Auto) Negative (Negative) 03/03/20 Range/Units 07:40 WBC (4.8-10.8) K/uL RBC (4.2-5.4) M/uL Hgb (12.0-16.0) g/dL Hct (37-47) % MCV (80-100) fL MCH (25-34) pg MCHC (32-36) g/dL RDW Std Deviation (36.4-46.3) fL RDW Coeff of Cheryl (11.5-14.5) % Plt Count (130-400) K/uL MPV (7.4-10.4) fL Immature Gran % (Auto) % Neut % (Auto) % Lymph % (Auto) % [place] % (Auto) % Eos % (Auto) % Baso % (Auto) % Immature Gran # (Auto) (0.00-0.02) K/uL Neut # (Auto) (1.4-6.5) K/uL Lymph # (Auto) (1.2-3.4) K/uL [place] # (Auto) (0.11-0.59) K/uL Eos # (Auto) (0-0.5) K/uL Baso # (Auto) (0-0.2) K/uL PT INR APTT PTT Ratio Sodium (136-145) mmol/L Potassium (3.5-5.1) mmol/L Chloride (98-107) mmol/L Carbon Dioxide (21-32) mmol/L Anion Gap (3-11) BUN (7-18) mg/dl Creatinine (0.6-1.2) mg/dl Est Cr Clr Drug Dosing ml/min Est GFR ( Amer) Est GFR (Non-Af Amer) BUN/Creatinine Ratio (10-20) Glucose (70-99) mg/dl Calcium (8.5-10.1) mg/dl Magnesium (1.8-2.4) mg/dl Total Bilirubin (0.2-1) mg/dl AST (15-37) U/L ALT (12-78) U/L Alkaline Phosphatase (45-117) U/L Total Creatine Kinase (26-192) U/L CK-MB (CK-2) (0.5-3.6) ng/ml CK/CKMB % Calc (0-3.0) Troponin I 0.045 (0-0.045) ng/ml NT-Pro-B Natriuret Pep (0-1800) pg/ml Total Protein (6.4-8.2) gm/dl Albumin (3.4-5.0) gm/dl Globulin (2.5-4.0) gm/dl Albumin/Globulin Ratio (0.9-2) Lipase (73-393) U/L TSH (0.300-4.500) uIu/ml Urine Color Urine Appearance (Clear) Urine pH (4.5-7.5) Ur Specific [place] (1.000-1.030) Urine Protein (Negative) Urine Glucose (UA) (Negative) Urine Ketones (Negative) Urine Blood (Negative) Urine Nitrite (Negative) Urine Bilirubin (Negative) Urine Urobilinogen (Negative) Ur Leukocyte Esterase (Negative) Urine WBC (Auto) (0-5) /hpf Urine RBC (Auto) (0-4) /hpf U Hyaline Cast (Auto) (0-5) /lpf U Epithel Cells (Auto) (0-5) /lpf Urine Bacteria (Auto) (Negative) Imaging Data Radiologist's Impression: [facility] [place] [phone] XRay Report Patient: JOSE CANTOR Admit Date: 03/03/20 MR#: [id number] Address1: [address] [place] [address] [address] Acct ID:[id number] Address2: Date: 1930 [facility] Zip: [place] [address] Age: 89 Location: ED Sex: F Room/Bed: Att Phy: Diagnosis: chest pain, palpatations Manju Phy: Edd Guardado MD Service Date: 03/03/20 [facility] Phy: Interpreting Phy: Keaton Casey MD Admit Phy: Ordering Phy: Arnol Knowles MD cc: ~ XR chest 1V portable CLINICAL HISTORY: 89 years-old Female presenting with Chest Pain. TECHNIQUE: Portable upright AP view of the chest was obtained. COMPARISON: 01/05/2020. FINDINGS: Median sternotomy wires, epicardial pacing wires, mediastinal surgical clips, and prosthetic aortic valve noted. Atherosclerosis of the aortic arch. Cardiac silhouette enlarged. Prominence of the main pulmonary artery. Pulmonary vascular prominence has worsened from prior. Interstitial prominence is stable from prior. Lungs are hyperinflated. Reticular opacities at the lung bases likely relate to prominence of the interstitium. There may be superimposed linear opacities. No large effusion or pneumothorax. Osteopenia suspected. Degenerative changes of the spine. Hiatal hernia may be present. IMPRESSION: 1. Interval worsening of volume overload and congestive change. No radha pulmonary edema at this time. 2. Underlying emphysema. Minimal bibasilar atelectasis or scarring. No focal infiltrate to suggest pneumonia. 3. Pulmonary artery hypertension suggested. 6 ACT 112: Negative or not required by law. Electronically signed by: Keaton Casey M.D. 03/03/2020 6:59 AM Dictated: 03/03/2057 Transcribed: 03/03/2057 ECG Data Attestation: I personally reviewed and interpreted this ECG as follows: Indication: + other (Right arm) Rate (beats per minute): 82 Rhythm: + normal sinus ECG ST segments: no ST depression and no ST elevation ECG Findings: + PACs Comparison ECG Date: from (01/06/2020) Change: no significant change Blood Pressure Blood Pressure Findings: Elevated blood pressure Blood Pressure Disposition: elevated BP felt to be situational MDM Narrative Patient was seen and evaluated as above in room B9. Review was performed of nursing notes and vital signs. I did review pertinent previous visits and patient history. After obtaining a thorough history and physical examination the above work up was performed. This is an 89-year-old female who presents emergency department hypertensive complaining of right arm pain status post 7 days after a aortic valve replacement. Her troponin is elevated however she just did have this surgery. We did discuss the case with the tin can feeder on-call who asked that the patient be admitted to the hospitalist service. Her chest x-ray is slightly full. While in the department, I personally reevaluated the patient several times and each time the patient was found to be resting comfortably. An order was placed for continuous cardiac monitoring. The monitor shows a rate of 68 with Normal Sinus rhythm. The patient was evaluated during the global COVID-19 pandemic, and that diagnosis was suspected/considered upon their initial presentation. Their evaluation, treatment and testing was consistent with current guidelines for patients who present with complaints or symptoms that may be related to COVID- 19. Impression & Plan Arm pain, Hypertension Discharge Plan Visit Data *Final* Discharge Date/Time: 03/03/20 09:25 Chief Complaint: Cardiac Assessment Stated Complaint: chest pain, palpatations ED Provider: Arnol Knowles ED Midlevel Provider: Geremias Freeman Discharge Problem: Arm pain, Hypertension Patient Disposition: Admitted As Inpatient Discharge Instructions Interventions: ED Discharge Assessment Last Done: 03/03/20 09:25 Discharge Problem: Arm pain Qualifiers: Laterality: right Qualified Code(s): M79.601 - Pain in right arm Hypertension Qualifiers: Hypertension type: unspecified Qualified Code(s): I10 - Essential (primary) hypertension
[2020-03-03 06:37] LABS: Basophils # (auto) 0.03 K/uL (0-0.2); Basophils % (auto) 0.6 %; Eosinophils # (auto) 0.44 K/uL (0-0.5); Eosinophils % (auto) 8.5 %; Hematocrit (blood only) 33.5 % (37-47); Immature Granulocytes # (auto) 0.01 K/uL (0.00-0.02); Immature Granulocytes % (auto) 0.2 %; Lymphocytes # (auto) 1.83 K/uL (1.2-3.4); Lymphocytes % (auto) 35.4 %; Mean Corpuscular Hemoglobin 29.2 pg (25-34); Mean Corpuscular Hgb Conc 32.8 g/dL (32-36); Mean Corpuscular Volume 88.9 fL (80-100); Mean Platelet Volume 11.1 fL (7.4-10.4); Monocytes # (auto) 0.71 K/uL (0.11-0.59); Monocytes % (auto) 13.7 %; Neutrophils # (auto) 2.15 K/uL (1.4-6.5); Neutrophils % (auto) 41.6 %; Platelet Count 212 K/uL (130-400); RDW Coefficient of Variation 15.9 % (11.5-14.5); Red Blood Count 3.77 M/uL (4.2-5.4); White Blood Count 5.17 K/uL (4.8-10.8)
[2020-03-03 06:50] LABS: Albumin Level 3.7 gm/dl (3.4-5.0); BUN Creatinine Ratio 16.4 (10-20); Calcium 9.3 mg/dl (8.5-10.1); Est GFR (African American) 58.7; Est GFR (Non-African American) 50.6; Potassium 3.9 mmol/L (3.5-5.1)
[2020-03-03 06:56] LABS: Albumin Globulin Ratio 1.2 (0.9-2); Bilirubin,Total 0.6 mg/dl (0.2-1); Globulin 3.2 gm/dl (2.5-4.0); Total Protein 6.9 gm/dl (6.4-8.2); Troponin I 0.049 ng/ml (0-0.045)
--- NOTE | 2020-03-03 07:01 | XRay Report ---
XR chest 1V portable CLINICAL HISTORY: 89 years-old Female presenting with Chest Pain. TECHNIQUE: Portable upright AP view of the chest was obtained. COMPARISON: 01/05/2020. FINDINGS: Median sternotomy wires, epicardial pacing wires, mediastinal surgical clips, and prosthetic aortic v alve noted. Atherosclerosis of the aortic arch. Cardiac silhouette enlarged. Prominence of the main p ulmonary artery. Pulmonary vascular prominence has worsened from prior. Interstitial prominence is st able from prior. Lungs are hyperinflated. Reticular opacities at the lung bases likely relate to prom inence of the interstitium. There may be superimposed linear opacities. No large effusion or pneumoth orax. Osteopenia suspected. Degenerative changes of the spine. Hiatal hernia may be present. IMPRESSION: 1. Interval worsening of volume overload and congestive change. No radha pulmonary edema at this alysia e. 2. Underlying emphysema. Minimal bibasilar atelectasis or scarring. No focal infiltrate to suggest p neumonia. 3. Pulmonary artery hypertension suggested. 6 ACT 112: Negative or not required by law. Electronically signed by: Keaton Casey M.D. 03/03/2020 6:59 AM
[2020-03-03 07:29] LABS: Appearance Urine Clear (Clear); Bacteria Urine Automated Negative (Negative); Bilirubin Urine Negative (Negative); Blood Urine Negative (Negative); Color Urine Yellow; Epithelial Cell Urine Auto >30 /lpf (0-5); Glucose Urine UA Negative (Negative); Ketones Urine Negative (Negative); Leukocyte Esterase Urine Trace (Negative); Nitrite Urine Negative (Negative); Protein Urine Negative (Negative); Specific Gravity Urine 1.011 (1.000-1.030); Urobilinogen Urine Negative (Negative)
--- NOTE | 2020-03-03 07:34 | Emergency Department Note ---
ED Visit Note Patient seen and examined in conjunction with Dr. Knowles. Please see his note for medical decision making. . Resident Activity Tracking Resident Involvement: Resident Care Provided Care Provided: Adult ED : Arm pain Qualifiers: Laterality: right Qualified Code(s): M79.601 - Pain in right arm Hypertension Qualifiers: Hypertension type: unspecified Qualified Code(s): I10 - Essential (primary) hypertension
[2020-03-03 08:05] LABS: Partial Thromboplastin Ratio 0.9; Partial Thromboplastin Time 25.9 Seconds (21.0-31.0); Prothrombin Time 10.5 Seconds (9.0-12.0)
[2020-03-03] MEDS ORDERED: dilTIAZem ER 120 MG CAPCR PO SCH (09:00)
--- NOTE | 2020-03-03 09:22 | History & Physical Report ---
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 Denies any diaphoresis, dizziness, syncope, nausea, vomiting, CP, SOB with this. Given 324 mg ASA by EMS In ER pt afebrile, P: 81, BP: 227/94 down to 178/84, R: 18, 98% on RA. EKG sinus rhythm. No leukocytosis, H/H: 11/33 (baseline Hgb: 11-12), Initial troponin: 0.049 at 05:55, repeat troponin: 0.045 at 07:40. Magnesium: 2.2, TSH:5 DDX: arrhythmia, ACS -In ER pt without any further palpitations, no CP, SOB -In ER pt given diltiazem 120mg po -Pt had recent med changes s/p post op discharge - diltiazem 120 mg was held and recommended to be resumed 03/05/2020. Her metoprolol succinate 100 mg was decreased to 50 mg daily. -Will trend troponin -Repeat EKG in am -Cardiology consult, vibration technician aware, recommends resuming prior med doses (2) Aortic stenosis: H/O Aortic stenosis s/p TAVR 2008 at [facility]. H/O Prosthetic valve aortic stenosis S/P TAVR 02/26/2020 at [facility] Per [facility] discharge papers: Limited postop echo s/p TAVR: Mild concentric LVH. EF: 65%, moderate mitral valve regurgitation. S/P transcatheter aortic valve replacement, trace aortic valve regurgitation, peak gradient is 14 mmHg, the mean gradient is 8 mmHg and the dimension this valve index is 0.99. Estimated right ventricular systolic pressure is 42 mmHg consistent with mild pulmonary hypertension. -Continue prophylactic Keflex for total 7 days -Continue Plavix. Was started on Plavix 02/27/2020 for 30 days -Continue Lasix -Currently appear euvolemic on exam -Monitor -Cardiology consult -Consider echo per cardiology recommendations (3) Hypertension: BP elevated in ER. Did not have morning meds -Had dose of diltiazem 120mg in ER -Plan to resume diltiazem daily -Continue metoprolol succinate, isosorbide, lasix (4) CKD (chronic kidney disease) stage 3, GFR 30-59 ml/min: Cr: 1.0. Baseline Cr: ~1.2 -Avoid nephrotoxic agents when possible -Monitor renal functions (5) Seizure disorder: Denies recent seizure -Continue lamotrigine (6) Dyslipidemia: -Continue statin (7) Hypothyroidism: TSH: 5 -continue levothyroxine DVT Prophylaxis -Arixtra secondary to h/o HIT DNR/DNI as per discussion with pt Follows with Dr Guardado for routine care Pt was seen and care coordinated with Dr Bauer. 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 Patient states this morning woke up around 5 AM with right arm pain and palpitations and sensation of heart was racing, also complains of burning sensation all over her body. Patient states symptoms lasted approximately 1 to 2 hours. She denies any diaphoresis, dizziness, syncope, nausea, vomiting, CP, SOB with this. It is reported EMS gave patient 324 mg aspirin. 02/26/2020 had aortic valve replacement at [facility] by Dr Romero. Was discharged on 02/27/2020. Was discharged on Keflex 500 mg twice daily x13 doses, Plavix 75 mg daily x30 days, her diltiazem 120 mg was held and recommended to be resumed 03/05/2020. Her metoprolol succinate 100 mg was decreased to 50 mg daily. Patient taking Lasix 40 mg daily on Mondays, Wednesdays, Fridays and 20 mg daily all remaining days. She reports since discharge has not noticed any shortness of breath, extremity edema or CP. She reports her groin sites are without discomfort or edema, erythema or discharge. Patient reports chronic decreased appetite. Denies any recent fever, chills, cough. Denies N/V/D/C, JOINER, dizziness, syncope, vision changes, neck pain, CP, SOB, orthopnea, sore throat, choking, otalgia, rhinorrhea, abdominal pain, paresthesias, weakness, extremity weakness, rashes, urinary symptoms. Per [facility] discharge papers: Limited postop echo s/p TAVR: Mild concentric LVH. EF: 65%, moderate mitral valve regurgitation. Right ventricle is normal in size, right ventricular systolic function is normal. Moderate mitral valve regurgitation. S/P transcatheter aortic valve replacement, trace aortic valve regurgitation, peak gradient is 14 mmHg, the mean gradient is 8 mmHg and the dimension this valve index is 0.99. Estimated right ventricular systolic pressure is 42 mmHg consistent with mild pulmonary hypertension. Estimated right atrial pressure is 8 mmHg based on IVC assessment. Allergies Allergy/AdvReac Type Severity Reaction Status Date / Time heparin Allergy Severe + Verified 03/03/20 06:36 SEROTONIN RELEASE ASSAY 09/2009 [facility] losartan Allergy Severe angioedema Verified 03/03/20 06:36 Cipro Allergy Intermediate ? Verified 11/18/15 11:01 ciprofloxacin Allergy Intermediate ? Verified 03/03/20 06:36 fexofenadine Allergy Intermediate ? Verified 03/03/20 06:36 risedronate sodium Allergy Intermediate ? Verified 03/03/20 06:36 alendronate sodium Allergy Unknown UNKNOWN Verified 03/03/20 06:36 Bactrim Allergy Unknown ? Verified 11/18/15 11:01 lactose Allergy Unknown . Unverified 03/03/20 06:36 morphine Allergy Unknown ? Verified 03/03/20 06:36 raloxifene Allergy Unknown UNKNOWN Verified 03/03/20 06:36 sulfamethoxazole Allergy Unknown ? Verified 03/03/20 06:36 trimethoprim Allergy Unknown ? Verified 03/03/20 06:36 oxycodone AdvReac Intermediate NAUSEA Verified 03/03/20 06:36 albuterol AdvReac Mild tachycardia Verified 03/03/20 06:36 Home Medications Home Medications Medication Instructions Recorded Confirmed Type amoxicillin 2,000 mg PO UD 01/12/19 03/03/20 History aspirin 81 mg PO DAILY 01/12/19 03/03/20 History atorvastatin 20 mg PO QAM 01/12/19 03/03/20 History cholecalciferol (vitamin D3) 2,000 unit PO QPM 01/12/19 03/03/20 History [Vitamin D3] diltiazem HCl 120 mg PO QAM 01/12/19 03/03/20 History isosorbide mononitrate 30 mg PO DAILY 01/05/20 03/03/20 History lamotrigine [Lamictal] 50 mg PO AMHS 01/05/20 03/03/20 History cephalexin 500 mg PO BID 03/03/20 03/03/20 History cetirizine [Zyrtec] 5 mg PO QPM 03/03/20 03/03/20 History clopidogrel 75 mg PO DAILY 03/03/20 03/03/20 History famotidine [Pepcid] 20 mg PO DAILY 03/03/20 03/03/20 History furosemide 20 mg PO UD 03/03/20 03/03/20 History furosemide 40 mg PO MOWEFR 03/03/20 03/03/20 History levothyroxine 75 mcg PO QAM 03/03/20 03/03/20 History magnesium oxide 400 mg PO QAM 03/03/20 03/03/20 History metoprolol succinate 100 mg PO HS 30 Days #30 tab 03/04/20 Rx Past Med/Surg History Medical History Acute hypoxemic respiratory failure Acute respiratory failure with hypoxia (Inactive) Carotid artery disease (Chronic) "bilateral bruits, < 50% stenosis bilaterally 2010" CHF (congestive heart failure) (Inactive) CKD (chronic kidney disease) stage 3, GFR 30-59 ml/min (Chronic) Diverticular disease of colon (Chronic) Dyslipidemia (Chronic) Facial laceration (Resolved) "upper lip; repaired 04/26/14; remove sutures 05/01-05/03" History of DVT (deep vein thrombosis) H/O DVT, PE 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 Clark [facility] 10/10/09; 21 mm Didi-Greene" H/O prosthetic aortic valve stensois - 02/26/2020: TAVR with Greene Natali S3#[id number] at [facility] by Dr Lundberg Family History Other Cancer Social History Preferred Language: [place] Irish Communication Ability: Effective Senior Process Control Tech Required: No Beliefs That Will Affect Care: None marital status: Current Living Situation: Spouse Feels Safe at Home: Yes Safety Concerns: Feels Safe At This Time Smoking Status: Never smoker Hx Alcohol Use: No Hx Substance Use: No Review of Systems Review of Systems: All systems reviewed & are unremarkable except as noted in HPI & below Physical Exam Physical Exam: General: no distress, WDWN Head: normocephalic, atraumatic Eyes: PERRL, EOM's intact, conjunctiva non-injected, anicteric ENT: normal inspection external ears, nose, mucous membranes moist Neck: supple, trachea midline Lungs: clear, no respiratory distress, no wheezing/rhonchi/rales CV: RRR, systolic murmur, no JVD, no pretibial edema Abd: normal BS, soft, non-tender Ext: no cyanosis, no calf tenderness Neuro: A&O x 3, no focal deficits noted, normal affect Skin: warm, dry, groin with ecchymosis without any edema or erythema or discharge from surgical site Results & Data Results & Data ([facility]) Vital Signs (Past 12 Hours) Vital Signs Temp Pulse Pulse Resp BP BP Pulse Ox 03/03/20 08:00 64 17 191/74 H 95 03/03/20 07:39 68 18 189/78 H 97 03/03/20 06:16 37.0 C 81 18 227/94 H 98 Laboratory Results Short CBC 03/03/20 Range/Units 05:55 WBC 5.17 (4.8-10.8) K/uL Hgb 11.0 L (12.0-16.0) g/dL Hct 33.5 L (37-47) % Plt Count 212 (130-400) K/uL BMP 03/03/20 05:55 Sodium 141 Potassium 3.9 Chloride 110 H Carbon Dioxide 25 BUN 16 Creatinine 1.00 Glucose 88 Calcium 9.3 Cardiac Enzymes 03/03/20 03/03/20 Range/Units 05:55 07:40 Total Creatine Kinase 73 (26-192) U/L CK-MB (CK-2) 2.0 (0.5-3.6) ng/ml Troponin I 0.049 H* 0.045 (0-0.045) ng/ml Liver Function 03/03/20 Range/Units 05:55 Total Bilirubin 0.6 (0.2-1) mg/dl AST 29 (15-37) U/L ALT 20 (12-78) U/L Alkaline Phosphatase 72 (45-117) U/L Albumin 3.7 (3.4-5.0) gm/dl Urine 03/03/20 Range/Units 07:20 Urine Color Yellow Urine Appearance Clear (Clear) Urine pH 7.0 (4.5-7.5) Ur Specific [place] 1.011 (1.000-1.030) Urine Protein Negative (Negative) Urine Glucose (UA) Negative (Negative) Diagnostic Findings CXR: IMPRESSION: 1. Interval worsening of volume overload and congestive change. No radha pulmonary edema at this time. 2. Underlying emphysema. Minimal bibasilar atelectasis or scarring. No focal infiltrate to suggest pneumonia. 3. Pulmonary artery hypertension suggested ECG Rate (beats per minute): 82 Rhythm: sinus rhythm Findings: + PAC Additional Comments: T wave abnormality lateral Code Status & VTE Plan VTE Prophylaxis Plan VTE Prophylaxis will be ordered: Yes Supervising Physician Co-Signing Physician Notes Pt was seen and examined. Agreed with Briana CHAPARRO exam, assessment and plan. 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 Pt said that her symptoms resolved now. Denies any chest pain and SOB. Currently she feels fine. CXR showed interval worsening of volume overload and congestive change with minimal bibasilar atelectasis or scarring. No focal infiltrate to suggest pneumonia. Receive IV lasix today.Cardiology consult. Case discussed with cardiology recommended to resume her medication with the previous dose before aortic valve replacement few weeks days ago. Will monitor in telemetry for any arrhythmia. MD Lizette (1) Hypertension Hypertension type: unspecified Qualified Code(s): I10 - Essential (primary) hypertension
[2020-03-03 09:38] LABS: Magnesium 2.2 mg/dl (1.8-2.4); Thyroid Stimulating Hormone 5.01 uIu/ml (0.300-4.500)
[2020-03-03] MEDS ORDERED: ACETAMINOPHEN 325 MG TAB PO PRN (09:49)
[2020-03-03] MEDS ORDERED: ISOSORBIDE MONO EXTENDED REL 30 MG TABCR PO SCH (09:49)
[2020-03-03] MEDS: FAMOTIDINE 20 MG TAB PO SCH (11:02)
[2020-03-03] MEDS: ATORVASTATIN 20 MG TAB PO SCH (11:02)
[2020-03-03] MEDS: cephALEXin 500 MG CAP PO SCH ×2 (11:03→20:03)
[2020-03-03] MEDS: CLOPIDOGREL BISULFATE 75 MG TAB PO SCH (11:03)
[2020-03-03] MEDS ORDERED: FUROSEMIDE 40 MG TAB PO SCH (11:30)
[2020-03-03] MEDS: POTASSIUM CHLORIDE 20 MEQ TABCR PO STA ×2 (12:11→12:15)
[2020-03-03] MEDS ORDERED: POTASSIUM CHLORIDE PWD 20 MEQ PACK PO ONE (12:16)
--- NOTE | 2020-03-03 13:33 | Cardiology Consultation ---
Date of Consultation March 03, 2020 Assessment & Plan (1) PSVT (paroxysmal supraventricular tachycardia): Recurrent episode after undergoing TAVR procedure and having AV myrna blocking agents reduced. Spontaneously converted on her own and did not capture the arrhythmia on the monitor. We will restart her previous dose of diltiazem and increase her metoprolol dose to previous. Should she have any recurrence at home after these medication changes consideration could be given to performing a ZIO Patch monitor. (2) Status post aortic valve replacement with bioprosthetic valve: Stable (3) Acute diastolic (congestive) heart failure: Slight volume overload at this time. We will give 1 dose of IV Lasix this afternoon and follow volume status clinically. Anticipate likely discharge in the a.m. (4) Hypertension: Rather significant upon presentation however likely significant anxiety component. Elevated this a.m. but significantly improved after receiving a.m. meds. We will continue to follow overnight. Should she become hypertensive again would recommend initiation of losartan 25 mg daily and titrated as necessary. History of Present Illness Reason for Consultation: Palpitations Requesting Physician: Dr. Rivas Attending Physician: Dean Bauer MD History of Present Illness It was my pleasure to see Mrs. Pérez in consultation today March 03, 2020. She is a very pleasant 89-year-old woman who routinely follows with Sergio Dalal of our cardiology practice. She presented to [facility] emergency department on 03/02/2020 with complaints of palpitations. The patient was discharged from [facility] approximately 1 week ago after undergoing TAVR procedure. She tolerated procedure very well and upon discharge was feeling well. She notes that her shortness of breath improved and she had no symptoms of palpitations during admission. Since discharge she was doing well at home feeling overall well. She woke up on the morning of 03/02/2020 with right arm discomfort and palpitations. She states that she felt her heart start to race and then developed this full-body burning sensation. She also had some chest discomfort down her right arm and this persisted for approximately an hour or 2. She states that this is similar to previous episodes of her PSVT. EMS arrived and her symptoms resolved. She tried to persuade EMS to return her home but she came into the emergency department. Upon arrival she was found to be significantly hypertensive and slightly volume overloaded. She was admitted to telemetry overnight and remains asymptomatic. Currently without complaint. Interestingly, she was discharged from [facility] with her diltiazem being discontinued and her metoprolol dose being cut in half. Past medical history: 1. Severe aortic stenosis s/p October 10, 2009 aortic valve replacement with a 21 mm Didi-Greene pericardial valve. 2. Bioprosthetic aortic valve stenosis, severe. 3. Mitral regurgitation. 4. Postoperative AVR complications in 09/2009 included acute blood loss, thrombocytopenia, atrial fibrillation, and hypertension. 5. ASCVD 1. Normal coronaries via August 2009 cardiac catheterization. 2. August 03, 2019 cardiac catheterization with a 70% mid RCA stenosis and mild disease in the left system. 6. Symptomatic PSVT. Patient previously referred to Dr. 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 Mild carotid disease, without infarction. 8. Hypertension. She has had issues with hydralazine, amlodipine, ACEI, ARB, and HCTZ. 9. Hyperlipidemia 10. Chronic renal insufficiency 11. Hypothyroidism 12. Partial symptomatic epilepsy with complex partial seizures 13. Migraine headaches, confusional migraines. 14. Osteoarthritis 15. Cervical disk disease 16. Osteoporosis 17. Diverticulosis 18. Hemorrhoids. 19. Mechanical fall in April 2014 with resultant right patellar fracture s/p repair complicated by bilateral DVT and PE. 20. Admission was to [facility] in October 2015 with angioedema of the tongue and left cheek felt to be secondary to a new toothpaste versus losartan (actual cause remains undetermined). Course complicated by symptomatic PSVT with spontaneous conversion back to sinus rhythm. Allergies Allergy/AdvReac Type Severity Reaction Status Date / Time heparin Allergy Severe + Verified 03/03/20 06:36 SEROTONIN RELEASE ASSAY 09/2009 [facility] losartan Allergy Severe angioedema Verified 03/03/20 06:36 Cipro Allergy Intermediate ? Verified 11/18/15 11:01 ciprofloxacin Allergy Intermediate ? Verified 03/03/20 06:36 fexofenadine Allergy Intermediate ? Verified 03/03/20 06:36 risedronate sodium Allergy Intermediate ? Verified 03/03/20 06:36 alendronate sodium Allergy Unknown UNKNOWN Verified 03/03/20 06:36 Bactrim Allergy Unknown ? Verified 01/26/16 11:01 lactose Allergy Unknown . Unverified 03/03/20 06:36 morphine Allergy Unknown ? Verified 03/03/20 06:36 raloxifene Allergy Unknown UNKNOWN Verified 03/03/20 06:36 sulfamethoxazole Allergy Unknown ? Verified 03/03/20 06:36 trimethoprim Allergy Unknown ? Verified 03/03/20 06:36 oxycodone AdvReac Intermediate NAUSEA Verified 03/03/20 06:36 albuterol AdvReac Mild tachycardia Verified 03/03/20 06:36 Home Medications Home Medications Medication Instructions Recorded Confirmed Type amoxicillin 2,000 mg PO UD 01/12/19 03/03/20 History aspirin 81 mg PO DAILY 01/12/19 03/03/20 History atorvastatin 20 mg PO QAM 01/12/19 03/03/20 History cholecalciferol (vitamin D3) 2,000 unit PO QPM 01/12/19 03/03/20 History [Vitamin D3] diltiazem HCl 120 mg PO QAM 01/12/19 03/03/20 History metoprolol succinate 50 mg PO HS 01/12/19 03/03/20 History isosorbide mononitrate 30 mg PO DAILY 01/05/20 03/03/20 History lamotrigine [Lamictal] 50 mg PO AMHS 01/05/20 03/03/20 History cephalexin 500 mg PO BID 03/03/20 03/03/20 History cetirizine [Zyrtec] 5 mg PO QPM 03/03/20 03/03/20 History clopidogrel 75 mg PO DAILY 03/03/20 03/03/20 History famotidine [Pepcid] 20 mg PO DAILY 03/03/20 03/03/20 History furosemide 20 mg PO UD 03/03/20 03/03/20 History furosemide 40 mg PO MOWEFR 03/03/20 03/03/20 History levothyroxine 75 mcg PO QAM 03/03/20 03/03/20 History magnesium oxide 400 mg PO QAM 03/03/20 03/03/20 History Patient History Medical History Acute hypoxemic respiratory failure Acute respiratory failure with hypoxia (Inactive) Carotid artery disease (Chronic) "bilateral bruits, < 50% stenosis bilaterally 2010" CHF (congestive heart failure) (Inactive) CKD (chronic kidney disease) stage 3, GFR 30-59 ml/min (Chronic) Diverticular disease of colon (Chronic) Dyslipidemia (Chronic) Facial laceration (Resolved) "upper lip; repaired 04/26/14; remove sutures 05/01-05/03" History of DVT (deep vein thrombosis) H/O DVT, PE 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 No acute distress. HEENT: Normocephalic, atraumatic. Pupils equal, round and reactive to light and accommodation. Extraocular muscles are intact. Anicteric sclera. Moist mucous membranes. Neck: No JVD. No bruit. Cardiovascular: Regular. Positive S-4. Normal S-1 and S-2. No S-3. 3/6 mid to late systolic ejection murmur, greatest at the right sternal border, second intercostal space with radiation to the bilateral carotids. No rubs. Pulmonary: Clear to auscultation bilaterally. No rales, rhonchi, or wheezing. Abdomen: Bowel sounds x 4, soft. No rebound, guarding or tenderness. No organomegaly. Extremities: No clubbing, cyanosis or edema. +2 pedal pulses bilaterally. Skin: Warm and dry. Results & Data ([facility]) Vital Signs (Past 12 Hours) Vital Signs Temp Pulse Pulse Pulse Resp BP BP 03/03/20 11:16 36.7 C 63 18 145/61 H 03/03/20 09:50 37.1 C 73 18 204/74 H 03/03/20 09:25 66 18 178/84 H 03/03/20 08:00 64 17 191/74 H 03/03/20 07:39 68 18 189/78 H 03/03/20 06:16 37.0 C 81 18 227/94 H Pulse Ox 03/03/20 11:16 96 03/03/20 09:50 97 03/03/20 09:25 96 03/03/20 08:00 95 03/03/20 07:39 97 03/03/20 06:16 98 Laboratory Results Laboratory Results - last 24 hr 03/03/20 03/03/20 03/03/20 05:55 05:55 05:55 WBC 5.17 RBC 3.77 L Hgb 11.0 L Hct 33.5 L MCV 88.9 MCH 29.2 MCHC 32.8 RDW Std Deviation 51.0 H RDW Coeff of Cheryl 15.9 H Plt Count 212 MPV 11.1 H Immature Gran % (Auto) 0.2 Neut % (Auto) 41.6 Lymph % (Auto) 35.4 [place] % (Auto) 13.7 Eos % (Auto) 8.5 Baso % (Auto) 0.6 Immature Gran # (Auto) 0.01 Neut # (Auto) 2.15 Lymph # (Auto) 1.83 [place] # (Auto) 0.71 H Eos # (Auto) 0.44 Baso # (Auto) 0.03 PT Cancelled INR Cancelled APTT Cancelled PTT Ratio Cancelled Sodium 141 Potassium 3.9 Chloride 110 H Carbon Dioxide 25 Anion Gap 6.0 BUN 16 Creatinine 1.00 Est Cr Clr Drug Dosing 30.0 Est GFR ( Amer) 58.7 Est GFR (Non-Af Amer) 50.6 BUN/Creatinine Ratio 16.4 Glucose 88 Calcium 9.3 Magnesium Total Bilirubin 0.6 AST 29 ALT 20 Alkaline Phosphatase 72 Total Creatine Kinase 73 CK-MB (CK-2) 2.0 CK/CKMB % Calc 2.7 Troponin I 0.049 H* NT-Pro-B Natriuret Pep Total Protein 6.9 Albumin 3.7 Globulin 3.2 Albumin/Globulin Ratio 1.2 Lipase 142 TSH Urine Color Urine Appearance Urine pH Ur Specific [place] Urine Protein Urine Glucose (UA) Urine Ketones Urine Blood Urine Nitrite Urine Bilirubin Urine Urobilinogen Ur Leukocyte Esterase Urine WBC (Auto) Urine RBC (Auto) U Hyaline Cast (Auto) U Epithel Cells (Auto) Urine Bacteria (Auto) 03/03/20 03/03/20 03/03/20 05:55 07:20 07:35 WBC RBC Hgb Hct MCV MCH MCHC RDW Std Deviation RDW Coeff of Cheryl Plt Count MPV Immature Gran % (Auto) Neut % (Auto) Lymph % (Auto) [place] % (Auto) Eos % (Auto) Baso % (Auto) Immature Gran # (Auto) Neut # (Auto) Lymph # (Auto) [place] # (Auto) Eos # (Auto) Baso # (Auto) PT 10.5 INR 1.0 APTT 25.9 PTT Ratio 0.9 Sodium Potassium Chloride Carbon Dioxide Anion Gap BUN Creatinine Est Cr Clr Drug Dosing Est GFR ( Amer) Est GFR (Non-Af Amer) BUN/Creatinine Ratio Glucose Calcium Magnesium 2.2 Total Bilirubin AST ALT Alkaline Phosphatase Total Creatine Kinase CK-MB (CK-2) CK/CKMB % Calc Troponin I NT-Pro-B Natriuret Pep 2529 H Total Protein Albumin Globulin Albumin/Globulin Ratio Lipase TSH 5.010 H Urine Color Yellow Urine Appearance Clear Urine pH 7.0 Ur Specific [place] 1.011 Urine Protein Negative Urine Glucose (UA) Negative Urine Ketones Negative Urine Blood Negative Urine Nitrite Negative Urine Bilirubin Negative Urine Urobilinogen Negative Ur Leukocyte Esterase Trace H Urine WBC (Auto) 1-5 Urine RBC (Auto) 5-10 H U Hyaline Cast (Auto) 1-5 U Epithel Cells (Auto) >30 H Urine Bacteria (Auto) Negative 03/03/20 07:40 WBC RBC Hgb Hct MCV MCH MCHC RDW Std Deviation RDW Coeff of Cheryl Plt Count MPV Immature Gran % (Auto) Neut % (Auto) Lymph % (Auto) [place] % (Auto) Eos % (Auto) Baso % (Auto) Immature Gran # (Auto) Neut # (Auto) Lymph # (Auto) [place] # (Auto) Eos # (Auto) Baso # (Auto) PT INR APTT PTT Ratio Sodium Potassium Chloride Carbon Dioxide Anion Gap BUN Creatinine Est Cr Clr Drug Dosing Est GFR ( Amer) Est GFR (Non-Af Amer) BUN/Creatinine Ratio Glucose Calcium Magnesium Total Bilirubin AST ALT Alkaline Phosphatase Total Creatine Kinase CK-MB (CK-2) CK/CKMB % Calc Troponin I 0.045 NT-Pro-B Natriuret Pep Total Protein Albumin Globulin Albumin/Globulin Ratio Lipase TSH Urine Color Urine Appearance Urine pH Ur Specific [place] Urine Protein Urine Glucose (UA) Urine Ketones Urine Blood Urine Nitrite Urine Bilirubin Urine Urobilinogen Ur Leukocyte Esterase Urine WBC (Auto) Urine RBC (Auto) U Hyaline Cast (Auto) U Epithel Cells (Auto) Urine Bacteria (Auto) Medications Administered Current Inpatient Medications Acetaminophen (Tylenol) 650 mg PO Q4H PRN PRN Reason: Pain or Fever Stop: 04/02/20 09:48 Aspirin (Ecotrin Ectab) 81 mg PO DAILY [facility] Stop: 04/03/20 08:59 Atorvastatin Calcium (Lipitor) 20 mg PO QAM [facility] Stop: 04/02/20 09:48 Last Admin: 03/03/20 11:02 Dose: 20 mg Documented by: Cephalexin HCl (Keflex) 500 mg PO BID [facility] Stop: 03/05/20 09:44 Last Admin: 03/03/20 11:03 Dose: 500 mg Documented by: Cetirizine HCl (Zyrtec) 5 mg PO QPM [facility] Stop: 04/02/20 20:59 Clopidogrel Bisulfate (Plavix) 75 mg PO DAILY [facility] Stop: 03/29/20 09:48 Last Admin: 03/03/20 11:03 Dose: 75 mg Documented by: Diltiazem HCl (Cardizem Cd) 120 mg PO QAM [facility] Stop: 04/03/20 08:59 Famotidine (Pepcid) 20 mg PO DAILY [facility] Stop: 04/02/20 09:48 Last Admin: 03/03/20 11:02 Dose: 20 mg Documented by: Fondaparinux (Arixtra) 1.5 mg SQ DAILY@1600 [facility]; Protocol Stop: 04/02/20 15:59 Furosemide (Lasix) 20 mg PO SuTuThSa@0900 [facility] Stop: 04/03/20 08:59 Furosemide (Lasix) 40 mg PO MoWeFr@0900 [facility] Stop: 04/02/20 11:29 Last Admin: 03/03/20 11:59 Dose: Not Given Documented by: Furosemide 40 mg/ Syringe 4 mls @ 4 mls/min IV ONE ONE Stop: 03/03/20 14:01 Last Admin: 03/03/20 12:11 Dose: 4 mls/min Documented by: Isosorbide Mononitrate (Imdur Extended Rel) 30 mg PO DAILY [facility] Stop: 04/02/20 09:48 Last Admin: 03/03/20 11:02 Dose: 30 mg Documented by: Lamotrigine (Lamictal) 50 mg PO AMHS [facility] Stop: 04/02/20 20:59 Levothyroxine Sodium (Synthroid) 75 mcg PO DAILYBB [facility] Stop: 04/03/20 06:29 Magnesium Oxide (Mag-Ox) 400 mg PO QAM [facility] Stop: 04/03/20 08:59 Metoprolol Succinate (Toprol Xl) 100 mg PO HS [facility] Stop: 04/02/20 20:59 Vitamin D (Vitamin D3) 2,000 units PO QPM [facility] Stop: 04/02/20 20:59 (1) Hypertension Hypertension type: unspecified Qualified Code(s): I10 - Essential (primary) hypertension
[2020-03-03] MEDS ORDERED: FUROSEMIDE 40 MG in SYRINGE 0 ML IV ONE (14:00)
[2020-03-03] MEDS: FONDAPARINUX 2.5 MG/0.5 ML SYR SQ SCH ×2 (17:20→17:36)
[2020-03-03] MEDS: lamoTRIgine 25 MG TAB PO SCH (20:04)
[2020-03-03] MEDS ORDERED: CHOLECALCIFEROL 1,000 UNITS 25 MCG TAB PO SCH (21:00)
[2020-03-03] MEDS ORDERED: METOPROLOL SUCC 50MG EXT REL TAB PO SCH (21:00)
[2020-03-03] MEDS ORDERED: CETIRIZINE HCL 10 MG TABLET PO SCH (21:00)
--- NOTE | 2020-03-03 22:42 | Electrocardiogram Report ---
Test Reason : Blood Pressure : / mmHG Vent. Rate : 082 BPM Atrial Rate : 082 BPM P-R Int : 186 ms QRS Dur : 094 ms QT Int : 394 ms P-R-T Axes : 063 -22 088 degrees QTc Int : 460 ms Sinus rhythm with Premature atrial complexes Possible Left atrial enlargement Left ventricular hypertrophy T wave abnormality, consider lateral ischemia Abnormal ECG When compared with ECG of 06-JAN-2020 12:38, Premature atrial complexes are now Present T wave inversion less evident in Lateral leads Confirmed by Anand Garcia ([id number]) on 03/03/2020 10:42:17 PM Referred By: REFERRED SELF Confirmed By:Anand Garcia
[2020-03-04] MEDS ORDERED: ISOSORBIDE MONO EXTENDED REL 30 MG TABCR PO SCH (00:30)
[2020-03-04 06:20] LABS: Hemoglobin 10.7 g/dL (12.0-16.0); Mean Corpuscular Hemoglobin 29.2 pg (25-34); Mean Corpuscular Hgb Conc 32.4 g/dL (32-36); Mean Corpuscular Volume 89.9 fL (80-100); Mean Platelet Volume 10.7 fL (7.4-10.4); Platelet Count 225 K/uL (130-400); RDW Coefficient of Variation 15.8 % (11.5-14.5); RDW Standard Deviation 52.2 fL (36.4-46.3); Red Blood Count 3.67 M/uL (4.2-5.4); White Blood Count 7.45 K/uL (4.8-10.8)
[2020-03-04] MEDS ORDERED: LEVOTHYROXINE SODIUM 75 MCG TABLET PO SCH (06:30)
[2020-03-04 06:58] LABS: BUN Creatinine Ratio 18.6 (10-20); Calcium 9.3 mg/dl (8.5-10.1); Creatinine Clr Calc Pharmacy 23.9 ml/min; Est GFR (African American) 47.5; Potassium 4.2 mmol/L (3.5-5.1)
[2020-03-04] MEDS: FAMOTIDINE 20 MG TAB PO SCH (07:59)
[2020-03-04] MEDS: CLOPIDOGREL BISULFATE 75 MG TAB PO SCH (07:59)
[2020-03-04] MEDS: cephALEXin 500 MG CAP PO SCH (08:00)
[2020-03-04] MEDS: ATORVASTATIN 20 MG TAB PO SCH (08:00)
[2020-03-04] MEDS: lamoTRIgine 25 MG TAB PO SCH (08:00)
[2020-03-04] MEDS ORDERED: ASPIRIN 81 MG ECTAB PO SCH (09:00)
[2020-03-04] MEDS ORDERED: MAGNESIUM OXIDE 400 MG TAB PO SCH (09:00)
[2020-03-04] MEDS ORDERED: dilTIAZem HCL 120 MG CAPCR PO SCH (09:00)
[2020-03-04] MEDS ORDERED: FUROSEMIDE 20 MG TAB PO SCH (09:00)
--- NOTE | 2020-03-04 13:08 | Hospitalist Progress Note ---
Date of Service March 04, 2020 Assessment & Plan (1) PSVT (paroxysmal supraventricular tachycardia): (2) Palpitations: Pt is 89 y/o F with PMH aortic stenosis s/p bioprosthetic aortic valve replacement in 2008, prosthetic aortic valve stenosis s/p aortic valve replacement 02/26/2020 at [facility], mitral regurgitation, tricuspid regurgitation, pulmonary hypertension, HTN, HLD, h/o PSVT, h/o DVT/PE after patellar fracture, h/o HIT, COPD, CKD III presented to ER with complaint of right arm pain and palpitations this morning at around 5am and lasted 1-2 hrs and self resolved. CXR on admission interval worsening of volume overload and congestive change. No radha pulmonary edema at this time. Telemonitor showed no arrhythmia Diltiazem 120mg resumed and her metoprolol dose increased to previous Cardiology on board Case discussed with cardiology and recommended to discharge with current meds Clinically stable (3) Acute diastolic (congestive) heart failure: CXR on admission showed interval worsening of volume overload and congesti ve change. No radha pulmonary edema at this time. Received Lasix 40mg IV Denies any SOB Will continue home dose lasix (4) Aortic stenosis: H/O Aortic stenosis s/p TAVR 2008 at [facility]. H/O Prosthetic valve aortic stenosis S/P TAVR 02/26/2020 at [facility] Per [facility] discharge papers: Limited postop echo s/p TAVR: Mild concentric LVH. EF: 65%, moderate mitral valve regurgitation. S/P transcatheter aortic valve replacement, trace aortic valve regurgitation, peak gradient is 14 mmHg, the mean gradient is 8 mmHg and the dimension this valve index is 0.99. Estimated right ventricular systolic pressure is 42 mmHg consistent with mild pulmonary hypertension. Continue prophylactic Keflex for total 7 days Continue Plavix Lasix IV 40mg given yesterday Continue PO home dose lasix on discharge (5) Hypertension: BP control Continue diltiazem 120mg, metoprolol 100mg succinate, isosorbide, lasix Stable (6) CKD (chronic kidney disease) stage 3, GFR 30-59 ml/min: Cr: 1.0. Baseline Cr: ~1.2 Avoid nephrotoxic agents Stable (7) Seizure disorder: Denies recent seizure Continue lamotrigine (8) Dyslipidemia: Continue statin (9) Hypothyroidism: TSH: 5 continue levothyroxine DVT Prophylaxis Received Arixtra yesterday due to history HIT with heparin Arixtra d/c today DNR/DNI Disposition Discharge home today Admission and Anticipated Discharge Date Admission Date: March 03, 2020 Subjective Pt was seen and examined Sitting in bed with no distress Pt said that she feels much better Denies any chest pain, palpitation, dizziness and SOB Physical Exam Physical Exam: General- No acute distress Head- atraumatic Eyes- PERRL, EOMI, ENT- oropharynx clear Neck- supple, no JVD Lungs- clear to auscultation Heart- regular rhythm; +systolic murmur Abdomen- normal bowel sounds, soft, nontender Extremities- no calf tenderness Neuro- alert, oriented x 3; PERRL, EOMI; no facial palsy; no dysarthria Skin- warm & dry Results & Data Results & Data ([facility]) Vital Signs (Past 12 Hours) Vital Signs Temp Pulse Pulse Resp BP Pulse Ox 03/04/20 11:21 36.4 C L 73 18 117/65 99 03/04/20 08:00 62 03/04/20 07:38 36.7 C 64 18 130/74 97 03/04/20 03:45 36.8 C 75 18 149/73 H 96 (1) Hypertension Hypertension type: unspecified Qualified Code(s): I10 - Essential (primary) hypertension
--- NOTE | 2020-03-04 13:27 | Cardiology Progress Note ---
Date of Service March 04, 2020 Assessment & Plan (1) PSVT (paroxysmal supraventricular tachycardia): Recurrent episode after undergoing TAVR procedure and having AV myrna blocking agents reduced. Spontaneously converted on her own and did not capture the arrhythmia on the monitor. She is responded well to restarting her previous dosages and they will be continued. No further cardiac testing or intervention is necessary at this time. Follow-up with cardiology as scheduled as an outpatient. (2) Status post aortic valve replacement with bioprosthetic valve: Stable (3) Acute diastolic (congestive) heart failure: Does not examine his volume overloaded at this time. Would DC home on previous outpatient medications. (4) Hypertension: Rather significant upon presentation however likely significant anxiety component. Resolved continue outpatient medical regimen. Subjective Patient seen and examined, medical records reviewed. States that she feels well today. Has had no recurrences of palpitations and is anxious for discharge. She denies any chest pain, shortness of breath, lightheadedness, dizziness or syncope. Telemetry reviewed: Normal sinus rhythm without sustained arrhythmia. Review of Systems Review of Systems: All systems reviewed & are unremarkable except as noted in HPI & below Physical Exam Physical Exam: General: Awake, alert and oriented x 3. No acute distress. HEENT: Normocephalic, atraumatic. Pupils equal, round and reactive to light and accommodation. Extraocular muscles are intact. Anicteric sclera. Moist mucous membranes. Neck: No JVD. No bruit. Cardiovascular: Regular. Positive S-4. Normal S-1 and S-2. No S-3. No murmurs or rubs. Pulmonary: Clear to auscultation B/L. No rales, rhonchi or wheezing Abdomen: Bowel sounds x 4, soft. No rebound, guarding or tenderness. No organomegaly. Extremities: No clubbing, cyanosis or edema. +2 pedal pulses bilaterally. Skin: Warm and dry. Results & Data Vital Signs (Past 12 Hours) Vital Signs Temp Pulse Pulse Resp BP Pulse Ox 03/04/20 11:21 36.4 C L 73 18 117/65 99 03/04/20 08:00 62 03/04/20 07:38 36.7 C 64 18 130/74 97 03/04/20 03:45 36.8 C 75 18 149/73 H 96 (1) Hypertension Hypertension type: unspecified Qualified Code(s): I10 - Essential (primary) hypertension
--- NOTE | 2020-03-05 05:29 | Electrocardiogram Report ---
Test Reason : Blood Pressure : / mmHG Vent. Rate : 059 BPM Atrial Rate : 059 BPM P-R Int : 166 ms QRS Dur : 090 ms QT Int : 458 ms P-R-T Axes : 013 -24 120 degrees QTc Int : 453 ms Sinus bradycardia Left ventricular hypertrophy with repolarization abnormality Abnormal ECG When compared with ECG of 03-MAR-2020 06:14, Premature atrial complexes are no longer Present T wave inversion more evident in Lateral leads Confirmed by Anand Garcia ([id number]) on 03/05/2020 5:28:55 AM Referred By: REFERRED SELF Confirmed By:Anand Garcia
--- NOTE | 2020-03-08 21:03 | Discharge Summary ---
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 Patient states this morning woke up around 5 AM with right arm pain and palpitations and sensation of heart was racing, also complains of burning sensation all over her body. Patient states symptoms lasted approximately 1 to 2 hours. She denies any diaphoresis, dizziness, syncope, nausea, vomiting, CP, SOB with this. It is reported EMS gave patient 324 mg aspirin. 02/26/2020 had aortic valve replacement at [facility] by Dr Romero. Was discharged on 02/27/2020. Was discharged on Keflex 500 mg twice daily x13 doses, Plavix 75 mg daily x30 days, her diltiazem 120 mg was held and recommen ded to be resumed 03/05/2020. Her metoprolol succinate 100 mg was decreased to 50 mg daily. Patient taking Lasix 40 mg daily on Mondays, Wednesdays, Fridays and 20 mg daily all remaining days. She reports since discharge has not noticed any shortness of breath, extremity edema or CP. She reports her groin sites are without discomfort or edema, erythema or discharge. Patient reports chronic decreased appetite. Denies any recent fever, chills, cough. Denies N/V/D/C, JOINER, dizziness, syncope, vision changes, neck pain, CP, SOB, orthopnea, sore throat, choking, otalgia, rhinorrhea, abdominal pain, paresthesias, weakness, extremity weakness, rashes, urinary symptoms. Per [facility] discharge papers: Limited postop echo s/p TAVR: Mild concentric LVH. EF: 65%, moderate mitral valve regurgitation. Right ventricle is normal in size, right ventricular systolic function is normal. Moderate mitral valve regurgitation. S/P transcatheter aortic valve replacement, trace aortic valve regurgitation, peak gradient is 14 mmHg, the mean gradient is 8 mmHg and the dimension this valve index is 0.99. Estimated right ventricular systolic pressure is 42 mmHg consistent with mild pulmonary hypertension. Estimated right atrial pressure is 8 mmHg based on IVC assessment. Admission Exam Per Admitting Provider General: no distress, WDWN Head: normocephalic, atraumatic Eyes: PERRL, EOM's intact, conjunctiva non-injected, anicteric ENT: normal inspection external ears, nose, mucous membranes moist Neck: supple, trachea midline Lungs: clear, no respiratory distress, no wheezing/rhonchi/rales CV: RRR, systolic murmur, no JVD, no pretibial edema Abd: normal BS, soft, non-tender Ext: no cyanosis, no calf tenderness Neuro: A&O x 3, no focal deficits noted, normal affect Skin: warm, dry, groin with ecchymosis without any edema or erythema or discharge from surgical site Principal Diagnosis (1) PSVT (paroxysmal supraventricular tachycardia): (2) Palpitations: (3) Acute diastolic (congestive) heart failure: (4) Aortic stenosis: (5) Hypertension (6) CKD (chronic kidney disease) stage 3, GFR 30-59 ml/min: (7) Seizure disorder: (8) Dyslipidemia: (9) Hypothyroidism Discharge Exam General- No acute distress Head- atraumatic Eyes- PERRL, EOMI, ENT- oropharynx clear Neck- supple, no JVD Lungs- clear to auscultation Heart- regular rhythm; +systolic murmur Abdomen- normal bowel sounds, soft, nontender Extremities- no calf tenderness Neuro- alert, oriented x 3; PERRL, EOMI; no facial palsy; no dysarthria Skin- warm & dry Discharge Data Allergies Allergy/AdvReac Type Severity Reaction Status Date / Time heparin Allergy Severe + Verified 03/03/20 06:36 SEROTONIN RELEASE ASSAY 09/2009 [facility] losartan Allergy Severe angioedema Verified 03/03/20 06:36 Cipro Allergy Intermediate ? Verified 11/18/15 11:01 ciprofloxacin Allergy Intermediate ? Verified 03/03/20 06:36 fexofenadine Allergy Intermediate ? Verified 03/03/20 06:36 risedronate sodium Allergy Intermediate ? Verified 03/03/20 06:36 alendronate sodium Allergy Unknown UNKNOWN Verified 03/03/20 06:36 Bactrim Allergy Unknown ? Verified 11/18/15 11:01 lactose Allergy Unknown . Unverified 03/03/20 06:36 morphine Allergy Unknown ? Verified 03/03/20 06:36 raloxifene Allergy Unknown UNKNOWN Verified 03/03/20 06:36 sulfamethoxazole Allergy Unknown ? Verified 03/03/20 06:36 trimethoprim Allergy Unknown ? Verified 03/03/20 06:36 oxycodone AdvReac Intermediate NAUSEA Verified 03/03/20 06:36 albuterol AdvReac Mild tachycardia Verified 03/03/20 06:36 Consultations 03/03/20 07:20 Consult Cardiology Stat 03/03/20 08:16 ED Decision to Admit Stat 03/03/20 09:49 Consult Cardiology Routine Consult Case Management - Discharge Planning Routine Ordered Studies XR chest 1V portable CLINICAL HISTORY: 89 years-old Female presenting with Chest Pain. TECHNIQUE: Portable upright AP view of the chest was obtained. COMPARISON: 01/05/2020. FINDINGS: Median sternotomy wires, epicardial pacing wires, mediastinal surgical clips, and prosthetic aortic valve noted. Atherosclerosis of the aortic arch. Cardiac silhouette enlarged. Prominence of the main pulmonary artery. Pulmonary vascular prominence has worsened from prior. Interstitial prominence is stable from prior. Lungs are hyperinflated. Reticular opacities at the lung bases likely relate to prominence of the interstitium. There may be superimposed linear opacities. No large effusion or pneumothorax. Osteopenia suspected. Degenerative changes of the spine. Hiatal hernia may be present. IMPRESSION: 1. Interval worsening of volume overload and congestive change. No radha pulmonary edema at this time. 2. Underlying emphysema. Minimal bibasilar atelectasis or scarring. No focal infiltrate to suggest pneumonia. 3. Pulmonary artery hypertension suggested. 6 ACT 112: Negative or not required by law. Electronically signed by: Keaton Casey M.D. 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 CXR on admission interval worsening of volume overload and congestive change. No radha pulmonary edema at this time. Telemonitor showed no arrhythmia Diltiazem 120mg resumed and her metoprolol dose increased to previous Cardiology on board Case discussed with cardiology and recommended to discharge with current meds Clinically stable (2) Aortic stenosis: H/O Aortic stenosis [place] [facility] [place]O Prosthetic valve aortic stenosis S/P TAVR 02/26/2020 at [facility] Per [facility] discharge papers: Limited postop echo s/p TAVR: Mild concentric LVH. EF: 65%, moderate mitral valve regurgitation. S/P transcatheter aortic valve replacement, trace aortic valve regurgitation, peak gradient is 14 mmHg, the mean gradient is 8 mmHg and the dimension this valve index is 0.99. Estimated right ventricular systolic pressure is 42 mmHg consistent with mild pulmonary hypertension. Continue prophylactic Keflex for total 7 days Continue Plavix Lasix IV 40mg given yesterday Continue PO home dose lasix on discharge (3) Hypertension: BP control Continue diltiazem 120mg, metoprolol 100mg succinate, isosorbide, lasix Stable (4) CKD (chronic kidney disease) stage 3, GFR 30-59 ml/min: Cr: 1.0. Baseline Cr: ~1.2 Avoid nephrotoxic agents Stable (5) Seizure disorder: Denies recent seizure Continue lamotrigine (6) Dyslipidemia: Continue statin (7) Hypothyroidism: TSH: 5 continue levothyroxine DVT Prophylaxis Received Arixtra yesterday due to history HIT with heparin Arixtra d/c today DNR/DNI Disposition Discharge home today Total Time Total Time Spent Total Time Spent (In Minutes): 35 minutes Total Time Includes: Examination of the Patient, Discharge Planning, Medication Reconciliation, Communication With Other Providers and Other Discharge Plan Discharge Items Patient Disposition: Home - Self-Care Reason For Visit: PALPITATIONS Discharge Diagnosis: (1) PSVT (paroxysmal supraventricular tachycardia): (2) Palpitations: (3) Acute diastolic (congestive) heart failure: (4) Aortic stenosis: (5) Hypertension (6) CKD (chronic kidney disease) stage 3, GFR 30-59 ml/min: (7) Seizure disorder: (8) Dyslipidemia: (9) Hypothyroidism: Activity: Resume your previous activity Non-emergency contact: Primary Care Provider and Rn Appeals Call non-emergency contact if: you have any medication questions Follow-up/Referrals: Edd Guardado MD [Primary Care Provider] - 03/11/20 11:00 am Diet: Heart Healthy Addtl Attending Provider Instructions: Follow up with your primary care provider Dr. Guardado on 03/11/20 at 11:00 AM Follow up with cardiology Seek medical attention if your symptoms reoccur Fall precaution Pending Studies at Discharge: No Stand-Alone Forms: My [facility] Myla, Smoking Cessation Medications and DC Order Prescriptions: Continued amoxicillin 500 mg capsule 2,000 mg PO UD RF: 0 atorvastatin 40 mg tablet 20 mg PO QAM RF: 0 aspirin 81 mg Tablet,Delayed Release (Dr/Ec) 81 mg PO DAILY RF: 0 diltiazem HCl 120 mg capsule,extended release 24hr 120 mg PO QAM RF: 0 cholecalciferol (vitamin D3) [Vitamin D3] 2,000 unit Tablet 2,000 unit PO QPM RF: 0 levothyroxine 75 mcg tablet 75 mcg PO QAM RF: 0 cetirizine [Zyrtec] 10 mg Tablet 5 mg PO QPM RF: 0 magnesium oxide 400 mg magnesium Tablet 400 mg PO QAM RF: 0 clopidogrel 75 mg tablet 75 mg PO DAILY RF: 0 cephalexin 500 mg capsule 500 mg PO BID RF: 0 famotidine [Pepcid] 20 mg Tablet 20 mg PO DAILY RF: 0 furosemide 20 mg tablet 40 mg PO MOWEFR RF: 0 furosemide 20 mg Tablet 20 mg PO UD RF: 0 isosorbide mononitrate 30 mg tablet extended release 24 hr 30 mg PO DAILY RF: 0 lamotrigine [Lamictal] 25 mg tablet 50 mg PO AMHS RF: 0 Changed metoprolol succinate 100 mg tablet extended release 24 hr 100 mg PO HS 30 Days Qty: 30 RF: 0 Discharge Orders: Discharge Order (Routine); Ordered 03/04/20 Ordered By: Dean Bauer Admission Data Admit Date/Time: 03/03/20 08:46 Attending Provider: Dean Bauer Admit Provider: Dean Bauer Primary Care Provider: Edd Guardado Other Providers: Chase Collins Other Interventions: Discharge Summary Assessment (RN) Last Done: 03/04/20 13:54 DC Date/Time DO NOT enter until pt leaves facility: 03/04/20 14:46
== END 2020-03-04 14:46 | disposition home or self-care (01) ==
LOC: ED 06:10 → 2S 06:10